=== PATIENT | female | born 1950 | race Caucasian/White ===

== ENCOUNTER 2019-06-07 03:08 | Inpatient (IN) | payer MEDICARE, OTHER ==
[2019-06-07] MEDS ORDERED: SODIUM CHLORIDE 0.9% 1,000 ML IV STA (04:06)
[2019-06-07] MEDS ORDERED: ONDANSETRON 4 MG/2 ML VIAL IVP PRN ×2 (04:26→16:29)
[2019-06-07] MEDS ORDERED: NALOXONE 0.4 MG/ML 1 ML VIAL IV PRN ×2 (04:26→16:29)
[2019-06-07] MEDS ORDERED: HYDROmorphone 1 MG/ML 1 ML SYRINGE IVP PRN (04:26)
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
[2019-06-07 04:46] LABS: Basophils % (A) 0 %; Eosinophils # (A) 0.1 k/uL (0-0.7); Eosinophils % (A) 1 %; HCT 33.3 % (34.0-46.0); HGB 10.9 gm/dL (11.4-16.0); Lymphocytes % (A) 11 %; MCH 31.9 pg (25.0-35.0); MCHC 32.8 g/dL (31.0-37.0); MCV 97.1 fL (80.0-100.0); Mean Platelet Volume 7.1; Monocytes # (A) 0.4 k/uL (0-1.0); Monocytes % (A) 5 %; Neutrophils # (A) 6.7 k/uL (1.3-7.7); Neutrophils % (A) 81 %; Platelet Count 194 k/uL (150-450); RBC 3.42 m/uL (3.80-5.40); RDW 11.9 % (11.5-15.5); WBC 8.3 k/uL (3.8-10.6)
[2019-06-07] MEDS ORDERED: HYDROmorphone 1 MG/ML 1 ML SYRINGE IVP STA (04:57)
[2019-06-07 04:59] LABS: Partial Thromboplastin Time 23.7 sec (22.0-30.0); Prothrombin Time 10.8 sec (9.0-12.0)
[2019-06-07] MEDS: HYDROmorphone 0.5 MG/0.5 ML SYRINGE IVP PRN ×5 (05:00→21:45)
--- NOTE | 2019-06-07 05:07 | XR ---
EXAM: XR Left Hip With Pelvis When Performed, 2 or 3 Views CLINICAL HISTORY: ITS.REASON XR Reason: Pain fall. TECHNIQUE: Two or three views of the left hip, with pelvis when performed. COMPARISON: No relevant prior studies available. FINDINGS: Bones/joints: Comminuted left intertrochanteric femoral fracture. Displacement of fragments and angulation at the fracture site. Query fractures of the left inferior pubic ramus and left sacral ala versus artifactual appearance due to position. No dislocation. Soft tissues: Unremarkable. IMPRESSION: 1. Comminuted left intertrochanteric femoral fracture. Displacement of fragments and angulation at the fracture site. 2. Query fractures of the left inferior pubic ramus and left sacral ala versus artifactual appearance due to position.
--- NOTE | 2019-06-07 05:09 | XR ---
EXAM: XR Chest, 1 View CLINICAL HISTORY: ITS.REASON XR Reason: hip fracture/ pain TECHNIQUE: Frontal view of the chest. COMPARISON: No relevant prior studies available. FINDINGS: Lungs: Low lung volumes. Pleural space: Unremarkable. No pneumothorax. Heart: Mildly enlarged cardiac silhouette. Mediastinum: Prominent superior mediastinum and paratracheal opacities may be due to low lung volumes and supine view. Aortic calcification. Bones/joints: Unremarkable. Vasculature: Mild central vascular congestion versus appearance due to low lung volumes. IMPRESSION: 1. Prominent superior mediastinum and paratracheal opacities may be due to low lung volumes and supine view. Aortic calcification. If there is further concern, repeat with improved inspiration or CT. 2. Mild central vascular congestion versus appearance due to low lung volumes.
[2019-06-07 05:10] LABS: ALT 33 U/L (9-52); AST 32 U/L (14-36); African American GFR (CKD) >90 (>60 ml/min/1.73 sqM); Albumin 3.4 g/dL (3.5-5.0); Alkaline Phosphatase 75 U/L (38-126); Anion Gap 8 mmol/L; Blood Urea Nitrogen 22 mg/dL (7-17); Calcium 8.5 mg/dL (8.4-10.2); Carbon Dioxide 25 mmol/L (22-30); Chloride 105 mmol/L (98-107); Glucose 102 mg/dL (74-99); Potassium 3.9 mmol/L (3.5-5.1); Sodium 138 mmol/L (137-145); Total Bilirubin 0.6 mg/dL (0.2-1.3); Total Protein 5.7 g/dL (6.3-8.2)
[2019-06-07] MEDS: SODIUM CHLORIDE 0.9% 1,000 ML IV SCH ×2 (05:23→11:34)
[2019-06-07 05:36] LABS: Appearance,Urine Clear (Clear); Bilirubin,Urine Negative (Negative); Blood,Urine Negative (Negative); Color,Urine Yellow; Glucose,Urine (UA) Negative (Negative); Ketones,Urine Negative (Negative); Leukocyte Esterase,Urine Negative (Negative); Nitrite,Urine Negative (Negative); Protein,Urine Negative (Negative); Specific Gravity,Urine 1.018 (1.001-1.035); Urobilinogen,Urine <2.0 mg/dL (<2.0)
[2019-06-07 06:44] LABS: Glucose,Whole Blood 119 mg/dL (75-99)
[2019-06-07] MEDS: FAMOTIDINE 20 MG TAB PO SCH ×2 (07:30→21:13)
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
[2019-06-07] MEDS: ATORVASTATIN 10 MG TAB PO SCH (11:30)
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
[2019-06-07] MEDS ORDERED: IV FLUID CONTINUATION 1,000 ML IV ONE (15:41)
[2019-06-07] MEDS ORDERED: diphenhydrAMINE 50 MG/ML 1 ML VIAL IVP PRN (16:29)
[2019-06-07] MEDS ORDERED: MIDAZOLAM 2 MG/2 ML VIAL ONE (17:43)
[2019-06-07] MEDS ORDERED: HYDROmorphone (PF) 1 MG/ML ONE (17:43)
[2019-06-07] MEDS ORDERED: PROPOFOL 10 MG/ML 20 ML VIAL IV ONE (17:43)
[2019-06-07] MEDS ORDERED: fentaNYL (PF) 50 MCG/ML 2 ML AMP ONE (17:43)
[2019-06-07] MEDS ORDERED: SUCCINYLCHOLINE CHLORIDE 100 MG/5 ML SYR IV ONE (17:43)
[2019-06-07] MEDS ORDERED: LIDOCAINE 1% INJ 10MG/ML (20 ML MDV) ONE (17:43)
[2019-06-07] MEDS ORDERED: MAGNESIUM HYDROXIDE 2,400 MG/10 ML CUP PO PRN (17:44)
[2019-06-07] MEDS ORDERED: HYDROmorphone 0.5 MG/0.5 ML SYRINGE IVP PRN (17:44)
[2019-06-07] MEDS ORDERED: TEMAZEPAM 15 MG CAP PO PRN (17:44)
[2019-06-07] MEDS ORDERED: HYDROcodone/APAP 5-325MG 1 EACH TAB PO PRN ×2 (17:44)
[2019-06-07] MEDS ORDERED: DIAZEPAM 5 MG TAB PO PRN (17:44)
[2019-06-07] MEDS: ceFAZolin IN SWFI 2 GM/20 ML SYRINGE IVP SCH (18:15)
[2019-06-07] MEDS ORDERED: ceFAZolin 1,000 MG in SODIUM CHLORIDE 0.9% 1,000 ML IRRIGATION ONE (18:27)
--- NOTE | 2019-06-07 18:47 | P.ANPRN ---
Procedure Note - Anesthesia - Invasive Line Left Arterial Line Time Out Performed: Yes Date of Procedure: 06/07/19 Time of Procedure: 16:25 Location of Patient Procedure: PreOp Preparation: Sterile Prep, Sterile Dressing Arterial Line Location: Radial Ultrasound Used: No Needle Guage: 20 Narrative: Left radial arterial line placed per sterile protocol utilized.
[2019-06-07] MEDS ORDERED: HYDROmorphone 1 MG/ML 1 ML SYRINGE IVP ONE (19:25)
[2019-06-07] MEDS ORDERED: diphenhydrAMINE 50 MG/ML 1 ML VIAL IVP ONE (19:46)
--- NOTE | 2019-06-07 20:23 | OP ---
OPERATIVE REPORT DATE OF PROCEDURE: 06/07/2019. SURGEON: Maykel Moy M.D. WOOD BUCKER: Terrell RAHMAN. PREOP DIAGNOSIS: Left displaced 4-part intertrochanteric hip fracture. POSTOPERATIVE DIAGNOSIS: Left displaced 4-part intertrochanteric hip fracture. OPERATION PERFORMED: Left intramedullary hip screw fixation for a left 4 part intertrochanteric hip fracture. ANESTHESIA: General endotracheal. ESTIMATED BLOOD LOSS: 50 mL. TOURNIQUET: None. DRAINS: None. COMPLICATIONS: None apparent. DISPOSITION: Postanesthesia care unit preop. INDICATIONS: Jill is a very pleasant 68-year-old female who had an accident and fell onto her left hip yesterday evening. She was brought to [facility] via ambulance with inability to ambulate and in severe left hip pain. History and physical examination as well as x-rays revealed a comminuted displaced 4 part intertrochanteric hip fracture. She was admitted to my service. She is a very active lady. She works as a realtor. She primarily lives down in [place]. Recommendation was for intramedullary hip screw fixation for her intertrochanteric hip fracture. The risks of procedure were discussed with her in detail. These risks included, but were not limited to risk of infection, nerve damage, bleeding, pain, and a risk of deep vein thrombosis which could lead to fatal pulmonary embolism. There is also risk of failure of the hardware failure, failure of the fracture to heal and periimplant fracture as well. The patient understands these risks. All of her questions were answered to her satisfaction. An appropriate informed consent was obtained. DESCRIPTION OF PROCEDURE: The patient was identified in preoperative holding area. Surgical sites marked by both the patient and myself. She was given 2 g of Ancef IV for prophylactic purposes. She was then transported to the operative suite. She was placed supine on the operative table. General anesthetic was then administered and dosed per the anesthesia without apparent complication. She was then transferred to the fracture table. She was well- padded on the fracture table. The left lower extremity was then reduced utilizing traction and rotation. Fluoroscopy was utilized to confirm reduction of the fracture prior to prepping and draping. When I was happy with the reduction, the left lower extremity was then prepped and draped in usual sterile fashion. Standard surgical pause undertaken to ensure that we were operating the correct site and that appropriate preop antibiotics were given. All staff in the room were in agreement and we proceeded. I then identified the tip of the greater trochanter utilizing fluoroscopy. Approximate 3 cm incision starting at the level of the tip of the greater trochanter, extending proximally in line with the shaft of the femur was then made with a 10 blade scalpel. Dissection was carried down sharply to the tensor fascia. The tensor fascia was then incised in line with the incision. I then utilized a curved awl to place the threaded starting pin. This was placed on the medial aspect of the greater trochanter and then advanced down the shaft of the femur. This was done under fluoroscopic guidance to ensure its proper placement. I then utilized the starting reamer. This was done, it was then reamed down to the level of the lesser trochanter. The threaded guide pin was then removed and replaced by a ball-tip guidewire. The ball- tipped guide was then placed down the shaft of the femur. Again, its placement was confirmed with fluoroscopic imaging. I then proceeded to ream the femoral canal. I started with a 9 mm reamer and increased incrementally up to a 13 mm reamer to allow for acceptance of the intramedullary hip screw. I then had the [employer] artists' booking representative open an 11 mm x 180 mm x 125 degree gamma nail. This was assembled on the back table. The gamma nail was then inserted over the ball- tipped guidewire. The ball-tipped guidewire was removed. I then proceeded with placement of the hip screw. A second small incision was made over the lateral thigh. The threaded guide pin was then advanced through the nail and into the center of the femoral head on both AP and lateral views. The tip -apex distance was appropriate. I then measured for length. The reamer was then set to 105 mm. The threaded guide pin was then over reamed under fluoroscopic imaging. I then had the artists' booking representative open a 10 mm x 105 mm cannulated partially-threaded hip screw. This was then advanced over the threaded guide pin. She had very good bone quality. Had excellent purchase in the femoral head. The screw was advanced deep into the center of the femoral head. This was confirmed on both AP and lateral views. The tip-apex distance was appropriate. I then proceeded to compress the fracture utilizing the compression function of the screw. I then proceeded to place the set screw. The set screw was then tightened fully and backed off 1/4 turn to allow for compression of the fracture site. I then proceeded to place the distal interlocking screw. A third small stab incision was made on the lateral thigh. A 5 mm x 37.5 mm distal static locking screw was then placed utilizing standard technique. Again this was placed under fluoroscopic imaging to confirm that it was indeed through the nail and that was of appropriate length. At this point time, no further work was deemed necessary. Final AP and lateral views of the construct were then taken. The fracture was reduced. The nail was within the femoral canal. The distal static locking screw was of appropriate length and through the nail. The hip screw was of appropriate length and placed deep into the center of the femoral head. The tip-apex distance was appropriate. At this point time no further work was deemed necessary. The wounds were thoroughly irrigated with sterile saline solution with antibiotic added. The tensor fascia was closed with 0-Vicryl interrupted suture. The subcutaneous tissue closed with 2-0 Vicryl interrupted suture and the skin was closed with stainless steel uriel. Sterile compressive dressing was then applied. All sponge and needle counts were deemed correct prior to closure. The patient tolerated the procedure without apparent complication. She was transferred to recovery room in stable condition. MMODL / IJN: [id number] /
[2019-06-07 20:46] LABS: Basophils % (A) 0 %; Eosinophils # (A) 0.1 k/uL (0-0.7); Eosinophils % (A) 1 %; HCT 31.6 % (34.0-46.0); HGB 10.2 gm/dL (11.4-16.0); Lymphocytes # (A) 0.9 k/uL (1.0-4.8); Lymphocytes % (A) 7 %; MCH 32.3 pg (25.0-35.0); MCHC 32.3 g/dL (31.0-37.0); MCV 100.2 fL (80.0-100.0); Mean Platelet Volume 7.2; Monocytes # (A) 0.6 k/uL (0-1.0); Monocytes % (A) 5 %; Neutrophils # (A) 10.3 k/uL (1.3-7.7); Neutrophils % (A) 86 %; Platelet Count 190 k/uL (150-450); RBC 3.15 m/uL (3.80-5.40); WBC 11.9 k/uL (3.8-10.6)
[2019-06-07] MEDS: NALBUPHINE 10 MG/ML (1 ML AMP) IV PRN (21:06)
[2019-06-07] MEDS: SENNOSIDES-DOCUSATE SODIUM 1 EACH TAB PO SCH (21:13)
[2019-06-07] MEDS: LACTATED RINGERS 1,000 ML IV SCH (23:45)
[2019-06-07] MEDS: ZOLPIDEM 10 MG TAB PO SCH (23:46)
[2019-06-08] MEDS: NALBUPHINE 10 MG/ML (1 ML AMP) IV PRN (02:03)
[2019-06-08] MEDS: HYDROmorphone 0.5 MG/0.5 ML SYRINGE IVP PRN ×6 (04:58→21:43)
[2019-06-08] MEDS: LEVOTHYROXINE 125 MCG TAB PO SCH (04:58)
[2019-06-08] MEDS: SODIUM CHLORIDE 0.9% 1,000 ML IV SCH ×2 (05:11→15:24)
[2019-06-08] MEDS: LACTATED RINGERS 1,000 ML IV SCH ×3 (05:43→22:50)
--- NOTE | 2019-06-08 07:15 | XR ---
EXAMINATION TYPE: XR Hip Limited LT, FL guidance operating room DATE OF EXAM: 06/07/2019 CLINICAL HISTORY: Left hip fracture. Fluoroscopically documentation. TECHNIQUE: Fluoroscopy. COMPARISON: None. FINDINGS: Fluoroscopic guidance was provided during procedure performed by Dr. Moy. A total of 1 minute and 32 seconds of fluoroscopic time was utilized during the procedure and 2 spot images was a cquired during a left hip open reduction internal fixation. IMPRESSION: As Above.
[2019-06-08] MEDS: CYANOCOBALAMIN 500 MCG TAB PO SCH (08:26)
[2019-06-08] MEDS: ceFAZolin IN SWFI 2 GM/20 ML SYRINGE IVP SCH (08:26)
[2019-06-08] MEDS: FAMOTIDINE 20 MG TAB PO SCH ×2 (08:26→21:42)
[2019-06-08] MEDS: CHOLECALCIFEROL 1,000 UNIT TAB PO SCH (08:26)
[2019-06-08] MEDS: HYDROCHLOROTHIAZIDE 25 MG TAB PO SCH (08:27)
[2019-06-08] MEDS: VIT A,C & E-LUTEIN-MINERALS 1 EACH TAB PO SCH (08:27)
[2019-06-08] MEDS: LISINOPRIL 20 MG TAB PO SCH (08:27)
[2019-06-08] MEDS: ATORVASTATIN 10 MG TAB PO SCH (08:27)
[2019-06-08] MEDS ORDERED: NON-FORMULARY DRUG (Ubidecarenone [Co Q-10] 100 MG) PO SCH (09:00)
--- NOTE | 2019-06-08 11:06 | P.PN ---
Subjective Progress Note Date: 06/08/19 Principal diagnosis: Left hip fracture Patient is seen at bedside this morning. She is postop day #1 from left hip IM hip screw for IT fracture. She has pain at the surgical site as expected but denies any new complaints. She denies numbness, tingling or calf pain. Review of systems is negative for fever, chills, chest pain, shortness of breath or other Objective - Vital Signs Vital signs: Vital Signs Temp 99.4 F 06/08/19 07:32 Pulse 82 06/08/19 07:32 Resp 16 06/08/19 07:32 BP 100/57 06/08/19 07:32 Pulse Ox 95 06/08/19 07:32 Intake & Output 06/07/19 06/08/19 06/08/19 18:59 06:59 18:59 Intake Total 701 210 260 Output Total 275 475 Balance 426 -265 260 Intake: IV 701 200 Oral 10 260 Output: Urine 275 425 Estimated Blood Loss 50 Other: Voiding Method Indwelling Catheter Indwelling Catheter # Voids 1 - Exam Inspection reveals a benign surgical wound. There is no active bleeding or drainage. Neurovascular status is intact throughout the lower extremity with motor and sensation fully intact. Calf is soft and nontender. 2+ dorsalis pedis pulse and less than 2 second cap refill is present. - Constitutional General appearance: Present: no acute distress - Labs CBC & Chem 7: 06/07/19 20:34 06/07/19 04:34 Labs: Abnormal Lab Results - Last 24 Hours (Table) 06/07/19 Range/Units 20:34 WBC 11.9 H (3.8-10.6) k/uL RBC 3.15 L (3.80-5.40) m/uL Hgb 10.2 L (11.4-16.0) gm/dL Hct 31.6 L (34.0-46.0) % MCV 100.2 H (80.0-100.0) fL Neutrophils # 10.3 H (1.3-7.7) k/uL Lymphocytes # 0.9 L (1.0-4.8) k/uL Assessment and Plan (1) Hip fracture, left Narrative/Plan: She will continue with routine postop orthopedic protocol including pain management, wound care, PT, DVT prophylaxis and medical management. Expect that she will transfer to home in next few days Current Visit: Yes Status: Acute Priority: Medium Code(s): S72.002A - FRACTURE OF UNSP PART OF NECK OF LEFT FEMUR, INIT SNOMED Code(s): 202013676 Time with Patient: Less than 30
[2019-06-08] MEDS: MULTIVITAMINS, THERA 1 EACH TAB PO SCH (11:31)
--- NOTE | 2019-06-08 11:46 | P.PN ---
Subjective Progress Note Date: 06/08/19 Patient is doing well. Patient had surgery yesterday and tolerated very well. No complaints of any chest pain or shortness of breath. Blood pressure stable. Complaints of pain in the surgical site. No arrhythmias detected. Patient will continue current medical therapy. Patient has some swelling of the left knee and getting some x-rays of the knee joint. Objective - Vital Signs Vital signs: Vital Signs Temp 99.4 F 06/08/19 07:32 Pulse 76 06/08/19 08:05 Resp 16 06/08/19 08:05 BP 100/57 06/08/19 07:32 Pulse Ox 95 06/08/19 07:32 Intake & Output 06/07/19 06/08/19 06/08/19 18:59 06:59 18:59 Intake Total 701 210 260 Output Total 275 475 Balance 426 -265 260 Intake: IV 701 200 Oral 10 260 Output: Urine 275 425 Estimated Blood Loss 50 Other: Voiding Method Indwelling Catheter Indwelling Catheter Indwelling Catheter # Voids 1 1 - Exam GENERAL EXAM: Patient is alert and oriented and doesn't appear to be in any a cute distress HEENT: Normocephalic. Normal reaction of pupils, equal size, normal range of extraocular motion. No erythema or exudates in the throat. NECK: No masses, no nuchal rigidity. CHEST: No chest wall deformity. LUNGS: Equal air entry with no crackles or wheeze. HEART: S1 and S2 normal with no audible mumurs or gallops. Regular rhythm, femorals equal on both sides.. ABDOMEN: No hepatosplenomegaly, normal bowel sounds, no guarding or rigidity. SKIN: No rashes CENTRAL NERVOUS SYSTEM: No focal deficits. EXTREMITIES: [No cyanosis, clubbing or edema.] - Labs CBC & Chem 7: 06/07/19 20:34 06/07/19 04:34 Labs: Abnormal Lab Results - Last 24 Hours (Table) 06/07/19 Range/Units 20:34 WBC 11.9 H (3.8-10.6) k/uL RBC 3.15 L (3.80-5.40) m/uL Hgb 10.2 L (11.4-16.0) gm/dL Hct 31.6 L (34.0-46.0) % MCV 100.2 H (80.0-100.0) fL Neutrophils # 10.3 H (1.3-7.7) k/uL Lymphocytes # 0.9 L (1.0-4.8) k/uL Assessment and Plan (1) Aortic stenosis Current Visit: Yes Status: Acute Code(s): I35.0 - NONRHEUMATIC AORTIC (VALVE) STENOSIS SNOMED Code(s): 30497041 (2) Preoperative clearance Current Visit: Yes Status: Acute Code(s): Z01.818 - ENCOUNTER FOR OTHER PREP ROCEDURAL EXAMINATION SNOMED Code(s): 13604912 (3) Essential hypertension Current Visit: Yes Status: Acute Code(s): I10 - ESSENTIAL (PRIMARY) HYPERTENSION SNOMED Code(s): 48210482 (4) Hypercholesterolemia Current Visit: Yes Status: Acute Code(s): E78.00 - PURE HYPERCHOLESTEROLEMIA, UNSPECIFIED SNOMED Code(s): 42685691 (5) Hip fracture, left Current Visit: Yes Status: Acute Priority: Medium Code(s): S72.002A - FRACTURE OF UNSP PART OF NECK OF LEFT FEMUR, INIT SNOMED Code(s): 199644330 Plan: Patient is hemodynamically stable. We'll continue with the KALEIGH inhibitor and hydrochlorothiazide pooper pressure control. She is also on Lipitor. We'll follow
--- NOTE | 2019-06-08 13:23 | XR ---
EXAMINATION TYPE: XR knee 4V LT DATE OF EXAM: 06/08/2019 COMPARISON: None HISTORY: Left knee pain and swelling TECHNIQUE: 4 view left knee FINDINGS: Partial joint replacement is through the medial compartment joint space. No acute fractures are evident. Old fracture of the proximal tibia is evident. A small to moderate joint effusion appea rs to be present. IMPRESSION: 1. Surgical changes left knee. 2. Small to moderate joint effusion.
--- NOTE | 2019-06-08 20:43 | P.PN ---
Subjective Progress Note Date: 06/08/19 POD #1 from left hip IM hip screw for IT fracture, sitting up in chair. recently received Dilaudid, reports left knee pain and swelling. COURTNEY overnight Objective - Vital Signs Vital signs: Vital Signs Temp 98.8 F 06/08/19 14:06 Pulse 89 06/08/19 14:06 Resp 16 06/08/19 17:00 BP 94/55 06/08/19 14:06 Pulse Ox 95 06/08/19 17:00 Intake & Output 06/08/19 06/08/19 06/09/19 06:59 18:59 06:59 Intake Total 210 1695 Output Total 475 Balance -265 1695 Intake: IV 200 Intake, IV Titration 800 Amount Lactated Ringers 1,000 ml 800 @ 100 mls/hr IV .Q10H [facility] Rx#:[id number] Oral 10 895 Output: Urine 425 Estimated Blood Loss 50 Other: Voiding Method Indwelling Catheter Indwelling Catheter # Voids 800 - Exam General: non toxic, no distress, appears at stated age, normal weight Derm: no unusual rashes/lesions no unusual ecchymoses, warm, dry Head: atraumatic, normocephalic, symmetric Eyes: EOMI, no lid lag, anicteric sclera, pupils equal round reactive to light ENT: Nose and ears atraumatic, no thrush, no pharyngeal erythema Neck: No thyromegaly, no cervical lymphadenopathy, trachea midline, supple Mouth: no lip lesion, mucus membranes moist Cardiovascular: S1S2 reg, 4/5 systolic ejection murmur, positive posterior tibial pulse bilateral, no edema, capillary refill less than 2 seconds Lungs: CTA bilateral, no rhonchi, no rales , no accessory muscle use Abdominal: soft, nontender to palpation, no guarding, no appreciable organomegaly, normal bowel sounds Ext: Left leg externally rotated, no gross muscle atrophy, muscle strength 5 out of 5 in upper extremities grossly, no contractures, Neuro: CN II-XI grossly intact, light touch intact all 4 extremities, finger to nose within normal limits, Psych: Alert, oriented, appropriate affect - Labs CBC & Chem 7: 06/07/19 20:34 06/07/19 04:34 Labs: Abnormal Lab Results - Last 24 Hours (Table) 06/07/19 Range/Units 20:34 WBC 11.9 H (3.8-10.6) k/uL RBC 3.15 L (3.80-5.40) m/uL Hgb 10.2 L (11.4-16.0) gm/dL Hct 31.6 L (34.0-46.0) % MCV 100.2 H (80.0-100.0) fL Neutrophils # 10.3 H (1.3-7.7) k/uL Lymphocytes # 0.9 L (1.0-4.8) k/uL Assessment and Plan Assessment: Patient is a 68 yo CF here after a fall with left IT hip fracture Severe aortic stenosis - careful fluid/ blood pressure management in the perioperative period. - cardio consult for assistance with fluid management, patient is medically optimized for surgery and can be seen by cardio post-operatively. Left IT hip fracture with pain - pain mangement - Plan is for OR today - RCRI risk score is 0. Medically optimized for surgery at this time, no additional testing necessary. Careful perioperative fluid management due to severe aortic stenosis. Last echo is available on the chart. Continue with - ortho management Left knee pain/swelling - likely traumatic secondary to fall - check left knee Xray and start ice packs prn Anemia - baseline unknown - check iron stores - repeat CBC in AM HTN, controlled - follow BP - Continue Remipril HLD - statin Insomnia - lalito Thank you for allowing us to participate in the care of this patient. Do not hesitate to contact us with questions. Someone can be reached from the [facility] hospitalist group at all hours of the day at [phone]
[2019-06-08] MEDS: SENNOSIDES-DOCUSATE SODIUM 1 EACH TAB PO SCH (21:42)
[2019-06-08] MEDS: ZOLPIDEM 10 MG TAB PO SCH (22:13)
[2019-06-09] MEDS: ACETAMINOPHEN TAB 325 MG TAB PO PRN (02:33)
[2019-06-09] MEDS: SODIUM CHLORIDE 0.9% 1,000 ML IV SCH ×2 (02:34→19:50)
[2019-06-09] MEDS: HYDROmorphone 0.5 MG/0.5 ML SYRINGE IVP PRN (04:39)
[2019-06-09] MEDS: LEVOTHYROXINE 125 MCG TAB PO SCH (05:36)
[2019-06-09] MEDS: VIT A,C & E-LUTEIN-MINERALS 1 EACH TAB PO SCH (08:34)
[2019-06-09] MEDS: CYANOCOBALAMIN 500 MCG TAB PO SCH (08:35)
[2019-06-09] MEDS: LISINOPRIL 20 MG TAB PO SCH (08:35)
[2019-06-09] MEDS: ATORVASTATIN 10 MG TAB PO SCH (08:35)
[2019-06-09] MEDS: HYDROCHLOROTHIAZIDE 25 MG TAB PO SCH (08:35)
[2019-06-09] MEDS: MULTIVITAMINS, THERA 1 EACH TAB PO SCH (08:35)
[2019-06-09] MEDS: CHOLECALCIFEROL 1,000 UNIT TAB PO SCH (08:35)
[2019-06-09] MEDS: FAMOTIDINE 20 MG TAB PO SCH ×2 (08:35→20:30)
[2019-06-09] MEDS: LACTATED RINGERS 1,000 ML IV SCH ×2 (11:06→19:51)
--- NOTE | 2019-06-09 11:07 | P.PN ---
Subjective Progress Note Date: 06/09/19 POD #2 from left hip IM hip screw for IT fracture, sitting up in chair. recently received Dilaudid, patient apparently has not been very ambulatory secondary to pain. Almost fell earlier today, patient amenable to going to rehab. Left knee x-ray showing effusion likely traumatic from fall. The Cabrera catheter still and will defer to orthopedics of when they want it removed. No acute events overnight Objective - Vital Signs Vital signs: Vital Signs Temp 98.2 F 06/09/19 07:45 Pulse 88 06/09/19 07:45 Resp 16 06/09/19 07:45 BP 100/61 06/09/19 07:45 Pulse Ox 93 L 06/09/19 07:45 Intake & Output 06/08/19 06/09/19 06/09/19 18:59 06:59 18:59 Intake Total 1695 240 240 Output Total 1700 Balance 1695 -1460 240 Intake: Intake, IV Titration 800 Amount Lactated Ringers 1,000 ml 800 @ 100 mls/hr IV .Q10H [facility] Rx#:[id number] Oral 895 240 240 Output: Urine 1700 Other: Voiding Method Indwelling Catheter Indwelling Catheter Indwelling Catheter # Voids 800 - Exam General: non toxic, no distress, appears at stated age, normal weight Derm: no unusual rashes/lesions no unusual ecchymoses, warm, dry Head: atraumatic, normocephalic, symmetric Eyes: EOMI, no lid lag, anicteric sclera, pupils equal round reactive to light ENT: Nose and ears atraumatic, no thrush, no pharyngeal erythema Neck: No thyromegaly, no cervical lymphadenopathy, trachea midline, supple Mouth: no lip lesion, mucus membranes moist Cardiovascular: S1S2 reg, 4/5 systolic ejection murmur, positive posterior tibial pulse bilateral, no edema, capillary refill less than 2 seconds Lungs: CTA bilateral, no rhonchi, no rales , no accessory muscle use Abdominal: soft, nontender to palpation, no guarding, no appreciable organ omegaly, normal bowel sounds Ext: Left leg externally rotated, no gross muscle atrophy, muscle strength 5 out of 5 in upper extremities grossly, no contractures, Neuro: CN II-XI grossly intact, light touch intact all 4 extremities, finger to nose within normal limits, Psych: Alert, oriented, appropriate affect - Labs CBC & Chem 7: 06/07/19 20:34 06/07/19 04:34 Assessment and Plan Assessment: Patient is a 68 yo CF here after a fall with left IT hip fracture Severe aortic stenosis - careful fluid/ blood pressure management in the perioperative period. - cardio consult for assistance with fluid management, patient is medically optimized for surgery and can be seen by cardio post-operatively. POD #2 from left hip IM hip screw for IT fracture - pain mangement - RCRI risk score is 0. Medically optimized for surgery at this time, no additional testing necessary. Careful perioperative fluid management due to severe aortic stenosis. Last echo is available on the chart. Continue with - ortho management Left knee effusion - likely traumatic secondary to fall -Continue ice packs prn Anemia - baseline unknown - check iron stores - repeat CBC in AM HTN, controlled - follow BP - Continue Remipril HLD - statin Insomnia - lalito Thank you for allowing us to participate in the care of this patient. Do not hesitate to contact us with questions. Someone can be reached from the [facility] hospitalist group at all hours of the day at [phone]
[2019-06-09] MEDS: oxyCODONE ER 10 MG TAB.ER.12H PO SCH ×2 (12:22→20:30)
--- NOTE | 2019-06-09 12:34 | P.PN ---
Subjective Progress Note Date: 06/09/19 Patient is doing well. Patient had surgery yesterday and tolerated very well. No complaints of any chest pain or shortness of breath. Blood pressure stable. Complaints of pain in the surgical site. No arrhythmias detected. Patient will continue current medical therapy. Patient has some swelling of the left knee and getting some x-rays of the knee joint. 06/08/2019: Patient is clinically stable. Complaints of pain in the surgical site. Ambulating to the bathroom. No complaints of any chest pain or shortness of breath. No complaints of palpitations. No arrhythmias. Patient is eating and drinking well. We can give him IV. Increase activity as tolerated. Patient still has a Cabrera catheter. Possible transfer to rehab center tomorrow Objective - Vital Signs Vital signs: Vital Signs Temp 98.2 F 06/09/19 07:45 Pulse 88 06/09/19 07:45 Resp 16 06/09/19 07:45 BP 100/61 06/09/19 07:45 Pulse Ox 93 L 06/09/19 07:45 Intake & Output 06/08/19 06/09/19 06/09/19 18:59 06:59 18:59 Intake Total 1695 240 240 Output Total 1700 Balance 1695 -1460 240 Intake: Intake, IV Titration 800 Amount Lactated Ringers 1,000 ml 800 @ 100 mls/hr IV .Q10H [facility] Rx#:[id number] Oral 895 240 240 Output: Urine 1700 Other: Voiding Method Indwelling Catheter Indwelling Catheter Indwelling Catheter # Voids 800 - Exam GENERAL EXAM: Patient is alert and oriented and doesn't appear to be in any acute distress HEENT: Normocephalic. Normal reaction of pupils, equal size, normal range of extraocular motion. No erythema or exudates in the throat. NECK: No masses, no nuchal rigidity. CHEST: No chest wall deformity. LUNGS: Equal air entry with no crackles or wheeze. HEART: S1 and S2 normal with no audible mumurs or gallops. Regular rhythm, femorals equal on both sides.. ABDOMEN: No hepatosplenomegaly, normal bowel sounds, no guarding or rigidity. SKIN: No rashes CENTRAL NERVOUS SYSTEM: No focal deficits. EXTREMITIES: [No cyanosis, clubbing or edema.] - Labs CBC & Chem 7: 06/07/19 20:34 06/07/19 04:34 Assessment and Plan (1) Aortic stenosis Current Visit: Yes Status: Acute Code(s): I35.0 - NONRHEUMATIC AORTIC (VALVE) STENOSIS SNOMED Code(s): 48622107 (2) Preoperative clearance Current Visit: Yes Status: Acute Code(s): Z01.818 - ENCOUNTER FOR OTHER PREPROCEDURAL EXAMINATION SNOMED Code(s): 46853459 (3) Essential hypertension Current Visit: Yes Status: Acute Code(s): I10 - ESSENTIAL (PRIMARY) HYPE RTENSION SNOMED Code(s): 92997039 (4) Hypercholesterolemia Current Visit: Yes Status: Acute Code(s): E78.00 - PURE HYPERCHOLESTEROLEMIA, UNSPECIFIED SNOMED Code(s): 28021162 (5) Hip fracture, left Current Visit: Yes Status: Acute Priority: Medium Code(s): S72.002A - FRACTURE OF UNSP PART OF NECK OF LEFT FEMUR, INIT SNOMED Code(s): 319072639 Plan: Cardiac-cesar stable. Patient is eating and drinking well. We'll make the IV KVO. Increase activity. Possible transfer to rehab center tomorrow.
[2019-06-09 15:10] LABS: Basophils % (A) 0 %; Eosinophils # (A) 0.1 k/uL (0-0.7); Eosinophils % (A) 1 %; HCT 22.3 % (34.0-46.0); Lymphocytes # (A) 0.5 k/uL (1.0-4.8); Lymphocytes % (A) 7 %; MCH 31.8 pg (25.0-35.0); MCHC 32.1 g/dL (31.0-37.0); Mean Platelet Volume 6.9; Monocytes # (A) 0.4 k/uL (0-1.0); Monocytes % (A) 6 %; Neutrophils # (A) 6.3 k/uL (1.3-7.7); Neutrophils % (A) 85 %; Platelet Count 123 k/uL (150-450); RBC 2.25 m/uL (3.80-5.40); RDW 12.1 % (11.5-15.5); WBC 7.4 k/uL (3.8-10.6)
[2019-06-09 15:17] LABS: HGB 7.1 gm/dL (11.4-16.0)
--- NOTE | 2019-06-09 15:59 | P.PN ---
Subjective Progress Note Date: 06/09/19 Principal diagnosis: Left hip fracture Patient is seen at bedside this morning. She is postop day #2 from left hip IM hip screw for IT fracture. She has pain at the surgical site as expected but denies any new complaints. She denies numbness, tingling or calf pain. Review of systems is negative for fever, chills, chest pain, shortness of breath or other Objective - Vital Signs Vital signs: Vital Signs Temp 97.4 F L 06/09/19 14:37 Pulse 84 06/09/19 14:37 Resp 16 06/09/19 14:37 BP 91/54 06/09/19 14:37 Pulse Ox 96 06/09/19 14:37 Intake & Output 06/08/19 06/09/19 06/09/19 18:59 06:59 18:59 Intake Total 1695 240 480 Output Total 1700 Balance 1695 -1460 480 Intake: Intake, IV Titration 800 Amount Lactated Ringers 1,000 ml 800 @ 100 mls/hr IV .Q10H [facility] Rx#:[id number] Oral 895 240 480 Output: Urine 1700 Other: Voiding Method Indwelling Catheter Indwelling Catheter Indwelling Catheter # Voids 800 3 - Exam Inspection reveals a benign surgical wound. There is no active bleeding or drainage. Neurovascular status is intact throughout the lower extremity with motor and sensation fully intact. Calf is soft and nontender. 2+ dorsalis pedis pulse and less than 2 second cap refill is present. - Constitutional General appearance: Present: no acute distress - Labs CBC & Chem 7: 06/09/19 14:57 06/07/19 04:34 Labs: Abnormal Lab Results - Last 24 Hours (Table) 06/09/19 Range/Units 14:57 RBC 2.25 L (3.80-5.40) m/uL Hgb 7.1 L D (11.4-16.0) gm/dL Hct 22.3 L (34.0-46.0) % Plt Count 123 L (150-450) k/uL Lymphocytes # 0.5 L (1.0-4.8) k/uL Assessment and Plan (1) Hip fracture, left Narrative/Plan: She will continue with routine postop orthopedic protocol including pain management, wound care, PT, DVT prophylaxis and medical management. Expect that she will transfer to home in next few days Current Visit: Yes Status: Acute Priority: Medium Code(s): S72.002A - FRACTURE OF UNSP PART OF NECK OF LEFT FEMUR, INIT SNOMED Code(s): 343940643 Time with Patient: Less than 30
[2019-06-09] MEDS: ZOLPIDEM 10 MG TAB PO SCH (20:30)
[2019-06-09] MEDS: SENNOSIDES-DOCUSATE SODIUM 1 EACH TAB PO SCH (20:31)
[2019-06-09] MEDS ORDERED: oxyCODONE ER 10 MG TAB.ER.12H PO SCH (21:00)
[2019-06-10] MEDS: LACTATED RINGERS 1,000 ML IV SCH ×2 (00:36→19:48)
[2019-06-10] MEDS: LEVOTHYROXINE 125 MCG TAB PO SCH (04:48)
[2019-06-10 06:48] LABS: MCH 33.4 pg (25.0-35.0); MCHC 34.7 g/dL (31.0-37.0); MCV 96.3 fL (80.0-100.0); Mean Platelet Volume 8.1; Platelet Count 142 k/uL (150-450); RBC 2.02 m/uL (3.80-5.40); RDW 12.7 % (11.5-15.5); WBC 8.5 k/uL (3.8-10.6)
[2019-06-10 06:51] LABS: HCT 19.5 % (34.0-46.0); HGB 6.8 gm/dL (11.4-16.0)
[2019-06-10] MEDS: SODIUM CHLORIDE 0.9% 1,000 ML IV SCH (07:53)
[2019-06-10] MEDS: CHOLECALCIFEROL 1,000 UNIT TAB PO SCH (07:54)
[2019-06-10] MEDS: CYANOCOBALAMIN 500 MCG TAB PO SCH (07:54)
[2019-06-10] MEDS: VIT A,C & E-LUTEIN-MINERALS 1 EACH TAB PO SCH (07:54)
[2019-06-10] MEDS: ATORVASTATIN 10 MG TAB PO SCH (07:54)
[2019-06-10] MEDS: HYDROCHLOROTHIAZIDE 25 MG TAB PO SCH (07:54)
[2019-06-10] MEDS: FAMOTIDINE 20 MG TAB PO SCH ×2 (07:55→21:29)
[2019-06-10] MEDS: oxyCODONE ER 10 MG TAB.ER.12H PO SCH ×3 (07:55→21:29)
[2019-06-10] MEDS: LISINOPRIL 20 MG TAB PO SCH (07:55)
--- NOTE | 2019-06-10 11:20 | P.PN ---
Subjective Progress Note Date: 06/10/19 Patient seen and examined at bedside, extremely somnolent but arousable. Reports that she feels drowsy apparently had oxycodone and Ambien last night. Reports her pain is well-controlled when she doesn't move, the hemoglobin gradually dropping 10.2 to 6.8 postop. Patient increasingly fatigued and tired. Has a lot of bruising around the left hip area Objective - Vital Signs Vital signs: Vital Signs Temp 97.5 F L 06/10/19 08:39 Pulse 88 06/10/19 08:39 Resp 16 06/10/19 08:39 BP 114/63 06/10/19 08:39 Pulse Ox 98 06/10/19 08:39 Intake & Output 06/09/19 06/10/19 06/10/19 18:59 06:59 18:59 Intake Total 480 100 Output Total 2450 Balance 480 -2350 Intake: Oral 480 100 Output: Urine 2450 Other: Voiding Method Indwelling Catheter Indwelling Catheter Indwelling Catheter # Voids 3 - Exam General: non toxic, no distress, appears at stated age, normal weight Derm: no unusual rashes/lesions no unusual ecchymoses, warm, dry Head: atraumatic, normocephalic, symmetric Eyes: EOMI, no lid lag, anicteric sclera, pupils equal round reactive to light ENT: Nose and ears atraumatic, no thrush, no pharyngeal erythema Neck: No thyromegaly, no cervical lymphadenopathy, trachea midline, supple Mouth: no lip lesion, mucus membranes moist Cardiovascular: S1S2 reg, 4/5 systolic ejection murmur, positive posterior tibial pulse bilateral, no edema, capillary refill less than 2 seconds Lungs: CTA bilateral, no rhonchi, no rales , no accessory muscle use Abdominal: soft, nontender to palpation, no guarding, no appreciable organome mo, normal bowel sounds Ext: No active bleeding or drainage appears to be neurovascularly intact, does have surrounding left hip hematoma Neuro: CN II-XI grossly intact, light touch intact all 4 extremities, finger to nose within normal limits, Psych: Alert, oriented, appropriate affect - Labs CBC & Chem 7: 06/10/19 05:48 06/07/19 04:34 Labs: Abnormal Lab Results - Last 24 Hours (Table) 06/09/19 06/10/1906/10/19 Range/Units 14:57 05:48 08:41 RBC 2.25 L 2.02 L (3.80-5.40) m/uL Hgb 7.1 L D 6.8 L* (11.4-16.0) gm/dL Hct 22.3 L 19.5 L* (34.0-46.0) % Plt Count 123 L 142 L (150-450) k/uL Lymphocytes # 0.5 L (1.0-4.8) k/uL Crossmatch See Detail Assessment and Plan Assessment: Patient is a 68 yo CF here after a fall with left IT hip fracture Severe aortic stenosis - careful fluid/ blood pressure management in the perioperative period. - cardio consult for assistance with fluid management, patient is medically optimized for surgery and can be seen by cardio post-operatively. POD #3 from left hip IM hip screw for IT fracture - pain mangement - RCRI risk score is 0. Medically optimized for surgery at this time, no additional testing necessary. Careful perioperative fluid management due to severe aortic stenosis. Last echo is available on the chart. Continue with - ortho management Postoperative anemia -Secondary to blood loss anemia hemoglobin down to 7.1 -Type and cross and transfuse 1 unit of packed RBCs to recheck CBC in the morning * will check iron studies Left knee effusion - likely traumatic secondary to fall -Continue ice packs prn HTN, controlled - follow BP - Continue Remipril HLD - statin Insomnia -We will decrease dose of Ambien from 10 to 5 mg PO qhs Disposition * Anticipated discharge on Wednesday to rehab Thank you for allowing us to participate in the care of this patient. Do not hesitate to contact us with questions. Someone can be reached from the [facility] hospitalist group at all hours of the day at [phone]
[2019-06-10] MEDS: ASPIRIN 325 MG TAB PO SCH ×2 (12:34→21:29)
[2019-06-10] MEDS: MULTIVITAMINS, THERA 1 EACH TAB PO SCH (12:34)
[2019-06-10] MEDS: ACETAMINOPHEN TAB 325 MG TAB PO PRN ×2 (13:13→20:02)
--- NOTE | 2019-06-10 13:21 | P.PN ---
Progress Note - Text Progress Note Date: 06/10/19 Patient is a very pleasant 68-year-old female who is seen and examined at the bedside for follow-up evaluation for her left hip. She is status post left hip intramedullary nail fixation for left intertrochanteric hip fracture. Postoperatively she feels her pain has been controlled at her left hip. She admits this morning she is having some increased confusion after receiving her Ambien and Percocet last night. She states she does not quite feel herself. Nursing is currently holding her Percocet. Laboratory testing from this morning showed evidence of anemia with a hemoglobin of 6.8. Medicine is planning to give 1 unit of blood. Patient is currently lying flat in bed per medicine's recommendations. Cabrera catheter continues to be intact. Patient was initially planing to possibly discharge home but she states she would not be able to do so and is planning for discharge to a rehabilitation facility. Given her other current medical diagnoses, we discussed she will most likely plan to be discharged to rehab this coming 06/12/2019. Physical Exam Intramedullary Nail Fixation for Intertrochanteric Fracture: Status post surgical day number 3 Patient is examined lying in bed Patient is awake and is able to answer questions appropriately but does doze off quickly and states she feels somewhat confused Vital signs stable Good chest excursion with deep inspiration and expiration; patient currently on O2 nasal cannula Abdomen soft nontender No signs or symptoms of DVT; no calf pain Lower extremity cuffs in place bilaterally Dressing of the hip is clean, dry, and intact; no erythema, purulence, or signs of infection No pain with palpation over the surgical sites Full range of motion of ankles bilaterally Dorsiflexion, plantarflexion, and extensor hallucis longus positive sustained bilaterally Neurovascularly intact bilateral lower extremities Capillary refill less than 2 seconds bilateral lower extremities Assessment: Status post left intramedullary nail fixation for left intertrochanteric hip fracture Status post fall Anemia Increased confusion after receiving Percocet and Ambien History of severe aortic stenosis History of hypertension History of insomnia Plan: 1. Patient to remain toe-touch weightbearing on the left lower extremity; patient may work with physical therapy to increase mobility and ambulation 2. Keep dressing over the left hip clean, dry, and intact 3. Discontinue Cabrera catheter when patient is able to increase mobility and ambulation 4. Continue pain control with oral Brock, OxyContin, and/or IV Dilaudid as needed for pain control but narcotics are currently being held until patient's confusion improves 5. Continue with anticoagulation therapy with aspirin 325 mg twice a day 6. Medicine to continue following the patient for their other medical diagnosis including anemia 7. We'll continue to follow the patient closely; depending on the patient's progress, we may plan for discharge as early as 06/12/2019, to a rehabilitation facility 8. Patient can follow-up with Dr. Maykel Moy at [facility] in 10 days following discharge
--- NOTE | 2019-06-10 14:06 | P.PN ---
Subjective Progress Note Date: 06/10/19 Patient is doing well. Patient had surgery yesterday and tolerated very well. No complaints of any chest pain or shortness of breath. Blood pressure stable. Complaints of pain in the surgical site. No arrhythmias detected. Patient will continue current medical therapy. Patient has some swelling of the left knee and getting some x-rays of the knee joint. 06/08/2019: Patient is clinically stable. Complaints of pain in the surgical site. Ambulating to the bathroom. No complaints of any chest pain or shortness of breath. No complaints of palpitations. No arrhythmias. Patient is eating and drinking well. We can give him IV. Increase activity as tolerated. Patient still has a Cabrera catheter. Possible transfer to rehab center tomorrow 06/09: Apparently, patient had mental status changes this morning most likely secondary to Ambien and Percocet and medication adjustments have been made by medicine. Patient is currently tolerating lisinopril well with blood pressure 114/63, heart rate 88, patient has been resumed on aspirin and atorvastatin. Cabrera catheter remains in place as patient states that she is unable to ambulate and get herself to the bathroom or commode chair. She denies having any chest pain or shortness of breath, no palpitations, no arrhythmias. She states she is not eating very much today and her is bringing her food from outside the hospital. She was scheduled for discharge to rehab today which is being delayed until Wednesday. Hemoglobin this morning was 6.8 and she is scheduled for 1 unit packed RBCs. Gen: This is a 68-year-old female. She is awake alert and appears to be in no acute distress. HEENT: Head is atraumatic, normocephalic. Pupils equal, round. Sclerae is anicteric. NECK: Supple. No JVD. No lymphadenopathy. No thyromegaly. LUNGS: Clear to auscultation. No wheezes or rhonchi. No intercostal retractions. HEART: Regular rate and rhythm. No murmur. ABDOMEN: Soft. Bowel sounds are present. No masses. No tenderness. EXTREMITIES: No pedal edema. No calf tenderness. Dorsalis pedis +2 bilaterally. NEUROLOGICAL: Patient is awake, alert and oriented x3. Cranial nerves 2 through 12 are grossly intact. Assessment: Aortic stenosis, stable Hypertension, stable Hyperlipidemia Left hip fracture status post IM screw Plan: Continue Lipitor 10 mg daily, lisinopril 40 mg daily, Aspirin 325 mg twice daily for DVT prophylaxis. Nurse practitioner note has been reviewed, I agree with the document and findings and plan of care. Patient has been seen and examined. Objective - Vital Signs Vital signs: Vital Signs Temp 97.5 F L 06/10/19 08:39 Pulse 88 06/10/19 08:39 Resp 16 06/10/19 08:39 BP 114/63 06/10/19 08:39 Pulse Ox 98 06/10/19 08:39 Intake & Output 06/09/19 06/10/19 06/10/19 18:59 06:59 18:59 Intake Total 480 100 Output Total 2450 Balance 480 -2350 Intake: Oral 480 100 Output: Urine 2450 Other: Voiding Method Indwelling Catheter Indwelling Catheter Indwelling Catheter # Voids 3 - Labs CBC & Chem 7: 06/10/19 05:48 06/07/19 04:34 Labs: Abnormal Lab Results - Last 24 Hours (Table) 06/09/19 06/10/19 06/10/19 Range/Units 14:57 05:48 08:41 RBC 2.25 L 2.02 L (3.80-5.40) m/uL Hgb 7.1 L D 6.8 L* (11.4-16.0) gm/dL Hct 22.3 L 19.5 L* (34.0-46.0) % Plt Count 123 L 142 L (150-450) k/uL Lymphocytes # 0.5 L (1.0-4.8) k/uL Crossmatch See Detail
[2019-06-10] MEDS: SENNOSIDES-DOCUSATE SODIUM 1 EACH TAB PO SCH (21:29)
[2019-06-10 23:12] LABS: Iron Saturation 0.98 (12.00-45.00)
[2019-06-10] MEDS: ZOLPIDEM 5 MG TAB PO SCH (23:34)
[2019-06-11] MEDS: LACTATED RINGERS 1,000 ML IV SCH ×3 (04:54→21:36)
[2019-06-11] MEDS: LEVOTHYROXINE 125 MCG TAB PO SCH (05:30)
[2019-06-11] MEDS: ACETAMINOPHEN TAB 325 MG TAB PO PRN ×2 (05:30→15:05)
[2019-06-11 07:58] LABS: Basophils % (A) 0 %; Eosinophils # (A) 0.3 k/uL (0-0.7); Eosinophils % (A) 4 %; HCT 22.8 % (34.0-46.0); HGB 7.5 gm/dL (11.4-16.0); Lymphocytes # (A) 0.5 k/uL (1.0-4.8); Lymphocytes % (A) 8 %; MCH 31.2 pg (25.0-35.0); MCHC 33.1 g/dL (31.0-37.0); MCV 94.4 fL (80.0-100.0); Mean Platelet Volume 7.3; Monocytes # (A) 0.3 k/uL (0-1.0); Monocytes % (A) 6 %; Neutrophils # (A) 4.8 k/uL (1.3-7.7); Neutrophils % (A) 81 %; Platelet Count 154 k/uL (150-450); RBC 2.42 m/uL (3.80-5.40); RDW 13.3 % (11.5-15.5); WBC 5.9 k/uL (3.8-10.6)
[2019-06-11] MEDS: LISINOPRIL 20 MG TAB PO SCH (08:35)
[2019-06-11] MEDS: CYANOCOBALAMIN 500 MCG TAB PO SCH (08:35)
[2019-06-11] MEDS: HYDROCHLOROTHIAZIDE 25 MG TAB PO SCH (08:35)
[2019-06-11] MEDS: ASPIRIN 325 MG TAB PO SCH ×2 (08:35→21:36)
[2019-06-11] MEDS: CHOLECALCIFEROL 1,000 UNIT TAB PO SCH (08:35)
[2019-06-11] MEDS: ATORVASTATIN 10 MG TAB PO SCH (08:35)
[2019-06-11] MEDS: FAMOTIDINE 20 MG TAB PO SCH ×2 (08:35→21:36)
[2019-06-11] MEDS: VIT A,C & E-LUTEIN-MINERALS 1 EACH TAB PO SCH (08:39)
--- NOTE | 2019-06-11 09:55 | P.PN ---
Subjective Progress Note Date: 06/11/19 Patient seen and examined at bedside up and ambulatory with walker with toe- touch to the restroom, we'll have her Cabrera catheter removed today. Patient complaining of left eye blurry vision in her inferior field, patient on his confused as yesterday. Objective - Vital Signs Vital signs: Vital Signs Temp 98.1 F 06/11/19 08:51 Pulse 84 06/11/19 08:51 Resp 12 06/11/19 08:51 BP 143/69 06/11/19 08:51 Pulse Ox 95 06/11/19 08:51 Intake & Output 06/10/19 06/11/19 06/11/19 18:59 06:59 18:59 Intake Total 0 310 Output Total 1000 400 Balance -1000 -90 Intake: Blood Product 0 310 Rc As-1 Unit 0 310 [id number] Output: Urine 1000 400 Other: Voiding Method Indwelling Catheter Indwelling Catheter Indwelling Catheter - Exam General: non toxic, no distress, appears at stated age, normal weight Derm: no unusual rashes/lesions no unusual ecchymoses, warm, dry Head: atraumatic, normocephalic, symmetric Eyes: EOMI, no lid lag, anicteric sclera, pupils equal round reactive to light ENT: Nose and ears atraumatic, no thrush, no pharyngeal erythema Neck: No thyromegaly, no cervical lymphadenopathy, trachea midline, supple Mouth: no lip lesion, mucus membranes moist Cardiovascular: S1S2 reg, 4/5 systolic ejection murmur, positive posterior tibial pulse bilateral, no edema, capillary refill less than 2 seconds Lungs: CTA bilateral, no rhonchi, no rales , no accessory muscle use Abdominal: soft, nontender to palpation, no guarding, no appreciable organomegaly, normal bowel sounds Ext: No active bleeding or drainage appears to be neurovascularly intact, does have surrounding left hip hematoma Neuro: CN II-XI grossly intact, light touch intact all 4 extremities, finger to nose within normal limits, Psych: Alert, oriented, appropriate affect - Labs CBC & Chem 7: 06/11/19 06:51 06/07/19 04:34 Labs: Abnormal Lab Results - Last 24 Hours (Table) 06/10/19 06/10/19 06/11/19 Range/Units 05:48 08:41 06:51 RBC 2.42 L (3.80-5.40) m/uL Hgb 7.5 L (11.4-16.0) gm/dL Hct 22.8 L (34.0-46.0) % Lymphocytes # 0.5 L (1.0-4.8) k/uL Iron 2 L (50-170) ug/dL TIBC 204 L (228-460) ug/dL Iron Saturation 0.98 L (12.00-45.00) Crossmatch See Detail Assessment and Plan Assessment: Patient is a 68 yo CF here after a fall with left IT hip fracture Severe aortic stenosis - careful fluid/ blood pressure management in the perioperative period. - cardio consult for assistance with fluid management, patient is medically optimized for surgery and can be seen by cardio post-operatively. POD #4 from left hip IM hip screw for IT fracture - pain mangement - ortho management Postoperative anemia -Secondary to blood loss anemia hemoglobin 7.5 from 6.8 status post 1 unit packed RBC transfusion Iron deficiency anemia superimposed on acute blood loss anemia after surgery Left eye blurry vision * Discussed with the patient that we would watch and if her symptoms persisted would consider ordering MRI of her head Metabolic encephalopathy * Attributed secondary to narcotic medications and Ambien * Has resolved since patient's narcotics have been discontinued Left knee effusion - likely traumatic secondary to fall -Continue ice packs prn HTN, controlled - follow BP - Continue Remipril HLD - statin Insomnia -We will decrease dose of Ambien from 10 to 5 mg PO qhs Disposition * Anticipated discharge on Wednesday to rehab Thank you for allowing us to participate in the care of this patient. Do not hesitate to contact us with questions. Someone can be reached from the [facility] hospitalist group at all hours of the day at [phone]
--- NOTE | 2019-06-11 10:08 | P.PN ---
Progress Note - Text Progress Note Date: 06/11/19 Patient is a very pleasant 68-year-old female who is seen and examined at the bedside for follow-up evaluation for her left hip. She is status post left hip intramedullary nail fixation for left intertrochanteric hip fracture. Postoperatively she feels her pain has been controlled at her left hip. This morning she states she feels significantly better as compared to yesterday. She is much more awake, alert, and oriented. She is no longer confused. She was able to receive 1 unit of packed red blood cells and her hemoglobin has improved to 7.5. She states she is ready for discharge to a rehabilitation facility tomorrow. We discussed she'll be cleared for discharge pending clearance by medicine. Physical Exam Intramedullary Nail Fixation for Intertrochanteric Fracture: Status post surgical day number 4 Patient is examined lying in bed Patient is awake, alert, and oriented 3 Vital signs stable Good chest excursion with deep inspiration and expiration Abdomen soft nontender No signs or symptoms of DVT; no calf pain Lower extremity cuffs in place bilaterally Dressing of the hip is clean, dry, and intact; no erythema, purulence, or signs of infection No pain with palpation over the surgical sites Full range of motion of ankles bilaterally Dorsiflexion, plantarflexion, and extensor hallucis longus positive sustained bilaterally Neurovascularly intact bilateral lower extremities Capillary refill less than 2 seconds bilateral lower extremities Assessment: Status post left intramedullary nail fixation for left intertrochanteric hip fracture Status post fall Anemia; hemoglobin improving up to 7.5 following unit of packed red blood cells History of severe aortic stenosis History of hypertension History of insomnia Plan: 1. Patient to remain toe-touch weightbearing on the left lower extremity; patient may work with physical therapy to increase mobility and ambulation 2. Keep dressing over the left hip clean, dry, and intact 3. Discontinue Cabrera catheter when patient is able to increase mobility and ambulation 4. Continue pain control with oral [place], OxyContin, and/or IV Dilaudid as needed for pain control 5. Continue with anticoagulation therapy with aspirin 325 mg twice a day 6. Medicine to continue following the patient for their other medical diagnosis including anemia and insomnia; Ambien dosage has been reduced 7. We'll continue to follow the patient closely; depending on the patient's progress, we may plan for discharge as early as 06/12/2019, to a rehabilitation facility 8. Patient can follow-up with Dr. Maykel Moy at [facility] in 10 days following discharge
[2019-06-11] MEDS: MULTIVITAMINS, THERA 1 EACH TAB PO SCH (15:05)
[2019-06-11] MEDS: SENNOSIDES-DOCUSATE SODIUM 1 EACH TAB PO SCH (21:33)
[2019-06-11] MEDS: oxyCODONE ER 10 MG TAB.ER.12H PO SCH (21:34)
[2019-06-11] MEDS: traMADol 50 MG TAB PO PRN (21:36)
[2019-06-11] MEDS: ZOLPIDEM 5 MG TAB PO SCH (23:03)
[2019-06-12] MEDS: traMADol 50 MG TAB PO PRN ×4 (03:53→21:55)
[2019-06-12] MEDS: LACTATED RINGERS 1,000 ML IV SCH ×3 (05:21→22:47)
[2019-06-12] MEDS: LEVOTHYROXINE 125 MCG TAB PO SCH (05:23)
[2019-06-12 07:38] LABS: Basophils % (A) 0 %; Eosinophils # (A) 0.3 k/uL (0-0.7); Eosinophils % (A) 5 %; HCT 22.9 % (34.0-46.0); HGB 7.7 gm/dL (11.4-16.0); Lymphocytes # (A) 0.8 k/uL (1.0-4.8); Lymphocytes % (A) 13 %; MCH 31.6 pg (25.0-35.0); MCHC 33.4 g/dL (31.0-37.0); MCV 94.6 fL (80.0-100.0); Mean Platelet Volume 7.3; Monocytes # (A) 0.4 k/uL (0-1.0); Monocytes % (A) 6 %; Neutrophils # (A) 4.4 k/uL (1.3-7.7); Neutrophils % (A) 74 %; Platelet Count 184 k/uL (150-450); RBC 2.42 m/uL (3.80-5.40); RDW 13.3 % (11.5-15.5)
[2019-06-12] MEDS: HYDROCHLOROTHIAZIDE 25 MG TAB PO SCH (08:24)
[2019-06-12] MEDS: LISINOPRIL 20 MG TAB PO SCH (08:24)
[2019-06-12] MEDS: CHOLECALCIFEROL 1,000 UNIT TAB PO SCH (08:24)
[2019-06-12] MEDS: ASPIRIN 325 MG TAB PO SCH ×2 (08:24→20:46)
[2019-06-12] MEDS: CYANOCOBALAMIN 500 MCG TAB PO SCH (08:24)
[2019-06-12] MEDS: oxyCODONE ER 10 MG TAB.ER.12H PO SCH ×2 (08:25→20:42)
[2019-06-12] MEDS: FAMOTIDINE 20 MG TAB PO SCH ×2 (08:25→20:46)
[2019-06-12] MEDS: VIT A,C & E-LUTEIN-MINERALS 1 EACH TAB PO SCH (08:25)
[2019-06-12] MEDS: ATORVASTATIN 10 MG TAB PO SCH (08:25)
--- NOTE | 2019-06-12 09:21 | P.DS ---
Providers Date of admission: 06/07/19 04:29 Expected date of discharge: 06/12/19 Attending physician: Maykel Moy Consults: 06/07/19 07:47 Consult Physician Routine Consulting Provider: Lupis Munguia Consult Reason/Comments: medical management Do you want consulting provider notified?: Already Contacted 06/07/19 10:09 Consult Physician Routine Consulting Provider: Dawson Chirinos Consult Reason/Comments: aortic stenosis, severe Do you want consulting provider notified?: Yes 06/07/19 10:26 Consult Physician Routine Consulting Provider: Dawson Chirinos Consult Reason/Comments: aortic stenosis, severe Do you want consulting provider notified?: Already Contacted Primary care physician: Physician Nonstaff - Discharge Diagnosis(es) (1) Hip fracture, left Patient was admitted to the OR on 06/07/2019 to undergo a left IM hip screw/IT nail for hip fracture. She desired to proceed with elective surgery after given informed consent. She underwent the above procedure which she tolerated well without complication. Postoperative hospital course has remained without complication. On day of discharge she is afebrile, vital signs stable, labs wit hin acceptable ranges, tolerating by mouth meds and diet, voiding without difficulty, positive flatus, denies abdominal pain or calf pain, pain is controlled on oral pain medication and has no new complaints. Wound is benign, neurovascular status is intact, calf is soft and nontender, abdomen soft and nontender. Review of systems is negative for numbness, tingling, fever, chills, chest pain, shortness breath, nausea, vomiting, dizziness, headaches, slurred speech or other. Current Visit: Yes Status: Acute Priority: Medium Patient Condition at Discharge: Good Plan - Discharge Summary Discharge Rx Participant: No New Discharge Prescriptions: New Aspirin 325 mg PO BID #60 tab Docusate [Colace] 100 mg PO BID #60 capsule HYDROcodone/APAP 10-325MG [[place] 10-325] 1 tab PO Q4HR PRN #42 tab PRN Reason: Pain oxyCODONE ER [OxyCONTIN] 10 mg PO Q12HR 3 Days #14 tab No Action Vit C/E/Zn/Coppr/Lutein/Zeaxan [Preservision Areds 2 Softgel] 1 cap PO DAILY Armour-3 Fatty Acids/Fish Oil [Fish Oil 1,000 mg Softgel] 1 cap PO DAILY Citracal/Vit D 1 tab PO DAILY Cholecalciferol (Vitamin D3) [Vitamin D3] 2,000 unit PO DAILY Zolpidem [Ambien] 10 mg PO HS Ramipril 10 mg PO DAILY Levothyroxine Sodium [Synthroid] 125 mcg PO DAILY Hydrochlorothiazide [Hydrodiuril] 25 mg PO DAILY Cyanocobalamin (Vitamin B-12) [Vitamin B-12] 1,000 mcg PO DAILY Atorvastatin [Lipitor] 10 mg PO DAILY Ubidecarenone [Co Q-10] 100 mg PO DAILY Discharge Medication List Atorvastatin [Lipitor] 10 mg PO DAILY 06/07/19 [History] Cholecalciferol (Vitamin D3) [Vitamin D3] 2,000 unit PO DAILY 06/07/19 [History] Citracal/Vit D 1 tab PO DAILY 06/07/19 [History] Cyanocobalamin (Vitamin B-12) [Vitamin B-12] 1,000 mcg PO DAILY 06/07/19 [History] Hydrochlorothiazide [Hydrodiuril] 25 mg PO DAILY 06/07/19 [History] Levothyroxine Sodium [Synthroid] 125 mcg PO DAILY 06/07/19 [History] Armour-3 Fatty Acids/Fish Oil [Fish Oil 1,000 mg Softgel] 1 cap PO DAILY 06/07/19 [History] Ramipril 10 mg PO DAILY 06/07/19 [History] Ubidecarenone [Co Q-10] 100 mg PO DAILY 06/07/19 [History] Vit C/E/Zn/Coppr/Lutein/Zeaxan [Preservision Areds 2 Softgel] 1 cap PO DAILY 06/07/19 [History] Zolpidem [Ambien] 10 mg PO HS 06/07/19 [History] Aspirin 325 mg PO BID #60 tab 06/09/19 [Rx] Docusate [Colace] 100 mg PO BID #60 capsule 06/09/19 [Rx] HYDROcodone/APAP 10-325MG [[place] 10-325] 1 tab PO Q4HR PRN #42 tab 06/09/19 [Rx] oxyCODONE ER [OxyCONTIN] 10 mg PO Q12HR 3 Days #14 tab 06/09/19 [Rx] Follow up Appointment(s)/Referral(s): [facility] [NON-STAFF] - Nonstaff,Physician [Primary Care Provider] - 1-2 days Maykel Moy MD [STAFF PHYSICIAN] - 10 Days [facility] Visiting Nurse, [NON-STAFF] - Activity/Diet/Wound Care/Special Instructions: Keep wound clean and dry Take meds as directed Follow-up with Dr. Moy in office Touch down weight bearing May shower in 3 days if no bleeding Syd out at PO day 12 Discharge Disposition: TRANSFER TO SNF/ECF
--- NOTE | 2019-06-12 12:19 | P.PN ---
Subjective Progress Note Date: 06/12/19 Principal diagnosis: Left blurry vision Patient was seen and examined. No acute events overnight. Patient reports blurriness in her left eye. States that this is been present since surgery. She thought that it would go away but it has become persistent. She denies any eye pain or photophobia. No eye discharge. She denies any headache, dizziness, numbness/weakness/tingling of the extremities. No slurred speech or difficulty swallowing. She denies any chest pain, shortness of breath or palpitations. Objective - Vital Signs Vital signs: Vital Signs Temp 97.8 F 06/12/19 08:00 Pulse 81 06/12/19 08:00 Resp 16 06/12/19 08:00 BP 137/70 06/12/19 08:00 Pulse Ox 96 06/12/19 08:00 Intake & Output 06/11/19 06/12/19 06/12/19 18:59 06:59 18:59 Output Total 700 Balance -700 Output: Urine 700 Uretheral (Cabrera) 300 Other: Voiding Method Indwelling Catheter Toilet Toilet # Voids 1 2 - Exam General: [non toxic], [no distress], [appears at stated age] Derm: [warm], [dry] Head: [atraumatic], [normocephalic], [symmetric] Eyes: [EOMI], [no lid lag], [anicteric sclera] Mouth: [no lip lesion], [mucus membranes moist] Cardiovascular: [S1S2 reg], [systolic murmur], [positive DP pulse bilateral], Lungs: [CTA bilateral], [no rhonchi, no rales] , [no accessory muscle use] Abdominal: [soft], [ nontender to palpation], [no guarding], [no appreciable organomegaly] Ext: [no gross muscle atrophy], [no edema], [left knee swollen] Neuro: [ Decreased vision in the inferior nasal and temporal quadrant left eye], [no focal neuro deficits] Psych: [Alert], [oriented], [appropriate affect] - Labs CBC & Chem 7: 06/12/19 06:23 06/07/19 04:34 Labs: Abnormal Lab Results - Last 24 Hours (Table) 06/12/19 Range/Units 06:23 RBC 2.42 L (3.80-5.40) m/uL Hgb 7.7 L (11.4-16.0) gm/dL Hct 22.9 L (34.0-46.0) % Lymphocytes # 0.8 L (1.0-4.8) k/uL Assessment and Plan Assessment: Left eye blurry vision Severe aortic stenosis POD 5 from left hip IM for intertrochanteric fracture Anemia from acute blood loss from surgery Left knee effusion Hypertension Hyperlipidemia Insomnia Resolved: Metabolic encephalopathy Decreased vision in the inferior nasal and temporal quadrants. Plans: Plans for evaluation by anesthesia prior to discharge. Consider CT brain if symptoms persistent. Cleared by cardiology for surgery. Stable. Plans: Follow cardiology recommendations. Plans: Management as per orthopedic surgery. Hemoglobin 7.7. Iron studies showing iron deficiency. Status post 1 unit PRBC. Plans: Hemoglobin maintaining. Repeat CBC in 3 days. Post fall. X-ray shows small to moderate joint effusion. Plans: Ice pack. BP 137/70. Plans: Continue hydrochlorothiazide, lisinopril. Monitor vitals, adjust medications as necessary. Plans: Continue Lipitor. Plans: Continue zolpidem. Thank you for this consult. Please call if any additional questions or concerns.
[2019-06-12] MEDS: MULTIVITAMINS, THERA 1 EACH TAB PO SCH (12:29)
[2019-06-12] MEDS: ARTIFICIAL TEARS-HYPROMELLOSE DROPS 15 ML BTL LEFT EYE PRN ×2 (14:10→20:46)
--- NOTE | 2019-06-12 15:42 | CDI ---
Documentation Clarification Form Date: 06/12/2019 2:59:43 PM From: Yamilet Nguyen RN, CCDS Admit Date: 06/07/2019 4:29:00 AM Patient Name: Jill Krause Visit Number: [id number] Discharge Date: ATTENTION: The Clinical Documentation Specialists (CDI) and [facility] Coding Staff appreciate your assistance in clarifying documentation. Please respond to the clarification below the line at the bottom and electronically sign. The CDI & [facility] Coding staff will review the response and follow-up if needed. Please note: Queries are made part of the Legal Health Record. If you have any questions, please contact the author of this message via ITS. Dr. Maykel Moy Anemia, acute blood loss after surgery is documented in the progress notes on 06/09/19 and further clarification is needed. Patients Admitting Diagnosis: Left displaced 4-part intertrochanteric hip fracture Post-Operative Diagnosis: Left displaced 4-part intertrochanteric hip fracture Procedure performed: Left intramedullary hip screw fixation History/Risk Factors: Severe aortic stenosis, Hypertension, Thyroid Disorder Clinical Indicators: 68-year-old female who fell onto her left hip. Her x-rays revealed comminuted displaced 4 part intertrochanteric hip fracture. She is post left intramedullary hip screw fixation on 06/07/2019 and per operative report estimated blood loss was 50 mls. Her admit hemoglobin on 06/07/19 was 10.9 06/09/19 HGB 7.1, HCT 22.3 06/11/19 HGB 6.8, HCT 19.5 06/12/19 HGB 7.5, HCT 22.8 Post 1 unit PRBC 06/09/19 IM Consult (Dr. Fournier) Hemoglobin gradually dropping 10.2 to 6.8 postop. Patient increasingly fatigued and tired. Has a lot of brusing around the left hip area. Vital signs are 114/63 87 16 98 % RA Iron deficiency anemia superimposed on acute blood loss anemia after surgery. Treatment: Monitor CBC, Iron Studies Transfuse 1 unit PRBC IV Fluids Theragram PO Daily multivitamin Preparations 1 PO DAILY In order to accurately reflect this patients severity of illness, please clarify if the post-operative acute blood loss anemia diagnosis is: An expected post-procedural or post-surgical condition (further specify if known) An unexpected post-procedural or post-surgical condition, related to the patients underlying medical comorbidities Other, please specify Unable to determine (Last Revision: February 2019) MTDD
--- NOTE | 2019-06-12 16:36 | CDI ---
Documentation Clarification Form Date: 06/12/2019 3:46:49 PM From: Yamilet Nguyen RN, CCDS Admit Date: 06/07/2019 4:29:00 AM Patient Name: Jill Krause Visit Number: [id number] Discharge Date: ATTENTION: The Clinical Documentation Specialists (CDI) and [facility] Coding Staff appreciate your assistance in clarifying documentation. Please respond to the clarification below the line at the bottom and electronically sign. The CDI & [facility] Coding staff will review the response and follow-up if needed. Please note: Queries are made part of the Legal Health Record. If you have any questions, please contact the author of this message via ITS. Dr. Maykel Moy 06/10/19 and subsequent progress notes by Dr. Fournier a left hip hematoma is documented and further clarification is needed. Patients Admitting Diagnosis: Fall with left displaced 4-part intertrochanteric hip fracture Post-Operative Diagnosis: Same Procedure performed: Left intramedullary hip screw fixation History/Risk Factors: Severe aortic stenosis, hypertension, Thyroid Disorder. Clinical Indicators: 68-year-old female who was a fall onto her left hip. Her x-rays revealed comminuted displaced 4 part intertrochanteric hip fracture. 06/09/19 POD #2: Inspection reveals a benign surgical wound. There is no active bleeding or drainage. Labs review reveal HGB 7.1, HCT 22.3 06/10/19 POD # 3 (Dr. Fournier) progress notes has a lot of brusing around the left hip area. No active bleeding or drainage appears to be neurovascularly intact, does have surrounding left hip hematoma. Labs review: HGB 6.8, HCT 19.5 Treatment: Monitor CBC Transfuse 1 unit PRBC IV Fluids Theragram Po Daily Muiltivitamin PO daily In order to accurately reflect this patients severity of illness, please clarify if the post-operative hematoma diagnosis is: An expected post-procedural or post-surgical condition, related to the fall (specify if Present on admission or Not Present on admission) An unexpected post-procedural or post-surgical condition, related to the patients underlying medical comorbidities, post fall with left hip fracture Left Hip hematoma ruled out ( Further specify) Other, please specify Unable to determine (Last Revision: February 2019) MTDD
--- NOTE | 2019-06-12 18:58 | CT ---
EXAMINATION TYPE: CT angio head neck DATE OF EXAM: 06/12/2019 HISTORY: Vision changes. COMPARISON: None CT DLP: mGycm. Automated Exposure Control for Dose Reduction was Utilized. TECHNIQUE: CTA scan of the neck is performed , patient injected with mL of , axial images are obtain ed, coronal and sagittal reformatted images are reviewed. Three-D reconstructed images are created on an independent workstation and reviewed. The contrast was Isovue 50 mL. FINDINGS: There is normal branching pattern of the great vessels on the aortic arch. There is some atherosclero tic plaque formation at the aortic arch. There is arterial flow in both subclavian arteries. There is arterial flow in both vertebral arteries. There is arterial flow in the vertebrobasilar artery syste m. There is some fusiform narrowing of the proximal right internal carotid artery with 30% narrowing. Th ere is arterial flow in the common internal and external carotid arteries bilaterally. There is fairl y wide patency of the carotid artery bifurcations. There is arterial flow in the anterior middle and posterior cerebral arteries. There is arterial flow in the intracranial internal carotid arteries bilaterally. There is normal contrast opacification of the venous sinuses. I see no evidence of intracranial arterial stenosis. There is bilateral patency of the posterior communicating arteries. There is no sign of intracranial aneurysm or neovascularity. There is no mass effect. IMPRESSION: Mild fusiform narrowing of the proximal right internal carotid artery without evidence of hemodynamic stenosis. Otherwise negative exam.
[2019-06-12] MEDS: ACETAMINOPHEN TAB 325 MG TAB PO PRN (19:48)
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
[2019-06-12] MEDS: SENNOSIDES-DOCUSATE SODIUM 1 EACH TAB PO SCH (20:49)
[2019-06-12] MEDS: ZOLPIDEM 5 MG TAB PO SCH (22:46)
[2019-06-13] MEDS: traMADol 50 MG TAB PO PRN ×2 (04:20→09:25)
[2019-06-13] MEDS: LEVOTHYROXINE 125 MCG TAB PO SCH (05:35)
[2019-06-13 08:28] VITALS: BP 132/66; PULSE 68; RESP 16; TEMP 98.5
[2019-06-13] MEDS: oxyCODONE ER 10 MG TAB.ER.12H PO SCH (08:33)
[2019-06-13] MEDS: CYANOCOBALAMIN 500 MCG TAB PO SCH (08:35)
[2019-06-13] MEDS: MULTIVITAMINS, THERA 1 EACH TAB PO SCH (08:35)
[2019-06-13] MEDS: VIT A,C & E-LUTEIN-MINERALS 1 EACH TAB PO SCH (08:35)
[2019-06-13] MEDS: HYDROCHLOROTHIAZIDE 25 MG TAB PO SCH (08:36)
[2019-06-13] MEDS: FAMOTIDINE 20 MG TAB PO SCH (08:36)
[2019-06-13] MEDS: CHOLECALCIFEROL 1,000 UNIT TAB PO SCH (08:36)
[2019-06-13] MEDS: ASPIRIN 325 MG TAB PO SCH (08:36)
[2019-06-13] MEDS: ATORVASTATIN 10 MG TAB PO SCH (08:36)
[2019-06-13] MEDS: ARTIFICIAL TEARS-HYPROMELLOSE DROPS 15 ML BTL LEFT EYE PRN (08:36)
[2019-06-13] MEDS: LISINOPRIL 20 MG TAB PO SCH (08:36)
--- NOTE | 2019-06-13 09:46 | P.PN ---
Subjective Progress Note Date: 06/13/19 Principal diagnosis: Left hip fracture Patient is seen at bedside this morning. She is postop day #6 from left hip IM hip screw for IT fracture. She had complaints of left eye field of vision changes since surgery and thus I requested anesthesia see her. They requested neurology consult for CVA work up. She has no new complaints today and appears to be doing well. She has pain at the surgical site as expected. She denies numbness, tingling or calf pain. Review of systems is negative for fever, chills, chest pain, shortness of breath, slurred speech, dizziness, headaches, nausea, vomitting, facial droop or other Objective - Vital Signs Vital signs: Vital Signs Temp 98.5 F 06/13/19 08:00 Pulse 68 06/13/19 08:00 Resp 16 06/13/19 08:00 BP 132/66 06/13/19 08:00 Pulse Ox 97 06/13/19 08:00 Intake & Output 06/12/19 06/13/19 06/13/19 18:59 06:59 18:59 Other: Voiding Method Toilet Toilet # Voids 5 2 # Bowel Movements 1 - Exam Inspection reveals a benign surgical wound. There is no active bleeding or drainage. Neurovascular status is intact throughout the lower extremity with motor and sensation fully intact. Calf is soft and nontender. 2+ dorsalis pedis pulse and less than 2 second cap refill is present. - Constitutional General appearance: Present: no acute distress - Labs CBC & Chem 7: 06/12/19 06:23 06/07/19 04:34 Assessment and Plan (1) Hip fracture, left Narrative/Plan: She will continue with routine postop orthopedic protocol including pain management, wound care, PT, DVT prophylaxis and medical management. She may transfer to Rehab when ok with IM and neurology. Current Visit: Yes Status: Acute Priority: Medium Code(s): S72.002A - FRACTURE OF UNSP PART OF NECK OF LEFT FEMUR, INIT SNOMED Code(s): 685946348 Time with Patient: Less than 30
--- NOTE | 2019-06-13 11:10 | ECHOF ---
Referral Reason:blurred vision MEASUREMENTS -------- HEIGHT: 165.1 cm WEIGHT: 71.7 kg BP: RVIDd: 2.9 cm (< 3.3) IVSd: 1.5 cm (0.6 - 1.1) LVIDd: 4.3 cm (3.9 - 5.3) LVPWd: 1.4 cm (0.6 - 1.1) IVSs: 1.8 cm LVIDs: 1.9 cm LVPWs: 1.8 cm Ao Diam: 3.0 cm (2.0 - 3.7) AV Cusp: 1.1 cm (1.5 - 2.6) LA Diam: 2.6 cm (2.7 - 3.8) MV EXCURSION: 16.659 mm (> 18.000) MV EF SLOPE: 119 mm/s (70 - 150) EPSS: 0.5 cm MV E Ignacio: 0.94 m/s MV DecT: 224 ms MV A Ignacio: 0.90 m/s MV E/A Ratio: 1.04 AV maxP.82 mmHg AV meanP.31 mmHg RAP: 5.00 mmHg RVSP: 19.78 mmHg FINDINGS -------- Sinus rhythm. This was a technically adequate study. Pt unable to turn due to hip fx. The left ventricular size is normal. There is moderate concentric left ventricular hypertrophy. O verall left ventricular systolic function is normal with, an EF between 55 - 60 %. The right ventricle is normal in size. The left atrial size is normal. The right atrial size is normal. Interatrial and interventricular septum intact. Aortic valve is trileaflet and is severely thickened. There is severe aortic stenosis present. Pe ak/mean gradient across the Aortic Valve is 83.82mmHg / 62.31mmHg. The mitral valve is normal. There is trace mitral regurgitation. Mild tricuspid regurgitation present. Right ventricular systolic pressure is normal at < 35 mmHg. There is no pulmonic regurgitation present. The aortic root size is normal. Normal inferior vena cava with normal inspiratory collapse consistent with estimated right atrial pre ssure of 5 mmHg. There is no pericardial effusion. CONCLUSIONS -------- 1. Sinus rhythm. 2. This was a technically adequate study. 3. Pt unable to turn due to hip fx. 4. The left ventricular size is normal. 5. There is moderate concentric left ventricular hypertrophy. 6. Overall left ventricular systolic function is normal with, an EF between 55 - 60 %. 7. The right ventricle is normal in size. 8. The left atrial size is normal. 9. The right atrial size is normal. 10. Interatrial and interventricular septum intact. 11. Aortic valve is trileaflet and is severely thickened. 12. There is severe aortic stenosis present. 13. Peak/mean gradient across the Aortic Valve is 83.82mmHg / 62.31mmHg. 14. The mitral valve is normal. 15. There is trace mitral regurgitation. 16. Mild tricuspid regurgitation present. 17. Right ventricular systolic pressure is normal at < 35 mmHg. 18. There is no pulmonic regurgitation present. 19. The aortic root size is normal. 20. Normal inferior vena cava with normal inspiratory collapse consistent with estimated right atrial pressure of 5 mmHg. 21. There is no pericardial effusion. FRONT DESK RECEPTIONIST: Erma Kebede RDCS
--- NOTE | 2019-06-13 12:29 | P.PN ---
Subjective Progress Note Date: 06/13/19 Principal diagnosis: Left hip pain Patient was seen and examined. No acute events overnight. Patient denies any chest pain, shortness of breath or palpitations. Still complaining of left eye blurriness in the inferior segments. She denies any nausea or vomiting. No fever or chills. Looking forward to going to rehab Objective - Vital Signs Vital signs: Vital Signs Temp 98.5 F 06/13/19 08:00 Pulse 68 06/13/19 08:00 Resp 16 06/13/19 08:00 BP 132/66 06/13/19 08:00 Pulse Ox 97 06/13/19 08:00 Intake & Output 06/12/19 06/13/19 06/13/19 18:59 06:59 18:59 Other: Voiding Method Toilet Toilet # Voids 5 2 # Bowel Movements 1 - Exam General: [non toxic], [no distress], [appears at stated age] Derm: [warm], [dry] Head: [atraumatic], [normocephalic], [symmetric] Eyes: [EOMI], [no lid lag], [anicteric sclera] Mouth: [no lip lesion], [mucus membranes moist] Cardiovascular: [S1S2 reg], [systolic murmur], [positive DP pulse bilateral], Lungs: [CTA bilateral], [no rhonchi, no rales] , [no accessory muscle use] Abdominal: [soft], [ nontender to palpation], [no guarding], [no appreciable organomegaly] Ext: [no gross muscle atrophy], [no edema], [left knee swollen] Neuro: [ Decreased vision in the inferior nasal and temporal quadrant left eye], [no focal neuro deficits] Psych: [Alert], [oriented], [appropriate affect] - Labs CBC & Chem 7: 06/12/19 06:23 06/07/19 04:34 Assessment and Plan Assessment: Left eye blurry vision Severe aortic stenosis POD 6 from left hip IM for intertrochanteric fracture Anemia from acute blood loss from surgery Left knee effusion Hypertension Hyperlipidemia Insomnia Resolved: Metabolic encephalopathy Decreased vision in the inferior nasal and temporal quadrants. CTA head and neck unremarkable. Echocardiogram shows EF 55-60% with moderate LVH and severe aortic stenosis. Telemetry unremarkable as per RN as she discussed with cardiology. Plans: Neurology consulted, cleared for discharge with current workup, MRI brain when patient is back in [place] along with loop recorder. Cleared by cardiology for surgery. Stable. Plans: Follow cardiology recommendations. Plans: Management as per orthopedic surgery. Hemoglobin 7.7. Iron studies showing iron deficiency. Status post 1 unit PRBC. Plans: Hemoglobin maintaining. Repeat CBC in 3 days. Post fall. X-ray shows small to moderate joint effusion. Plans: Ice pack. BP 132/66. Plans: Continue hydrochlorothiazide, lisinopril. Monitor vitals, adjust medications as necessary. Plans: Continue Lipitor. Plans: Continue zolpidem. Thank you for this consult. Please call if any additional questions or concerns.
--- NOTE | 2019-06-13 14:08 | P.PN ---
Progress Note - Text Progress Note Date: 06/13/19 Subjective: No overnight events. Patient continues to endorse a visual field cut and her left lower medial corner. Denies any headache, nausea, dizziness, blurry vision, worsening visual field cut, weakness, numbness, or tingling sensation. Patient had her CTA of head and neck showed mild fusiform narrowing of the proximal right ICA without evidence of hemodynamic stenosis. Otherwise negative. Transthoracic echocardiogram showed ejection fraction between 55-60%. Normal left ventricular/right ventricular/left and right atrial size. The aortic valve is severely thickened. On review of telemetry overnight, there was an event of some arrhythmia. P waves are present for all QRS complexes. PHYSICAL EXAMINATION: VITAL SIGNS: Temperature 97.7. Pulse rate 69. Respiratory rate 14. Blood pressure 125/61. O2 sat 96% on room air. GEN.: NAD, pleasant and cooperative SKIN AND EXTREMITIES: Warm to touch, no edema Neuro: MENTAL STATUS: Patient alert and oriented to self, place, time. CRANIAL NERVES II THROUGH XII: II: Pupils are equal and reactive to light symmetrically. No afferent pupillary defect. Left inferior nasal quadrant with decreased vision. Reexamined right inferior quadrants, which appear normal.. III, IV, : No ptosis. Extraocular movements full. No nystagmus. V: Facial sensation intact from V1-3. VII. No clear facial asymmetry. VIII: Hearing intact to finger rub bilaterally. IX, X: Symmetric palate elevation. XII: Shoulder shrug intact. XII: Tongue midline without fasciculation or atrophy. MOTOR: Normal bulk/tone. No pronator drift or tremor. Strength is 5/5 throughout all 4 extremities. SENSORY: Intact to light touch, temperature, pinprick in all 4 extremities. Romberg is negative. REFLEXES: 2+ throughout. Toes are downgoing. No clonus. Alfonzo's is absent COORDINATION: Finger to nose and heel to tan intact. No dysmetria. DIAGNOSTIC TESTING: CTA of head and neck showed mild fusiform narrowing of the proximal right ICA without evidence of hemodynamic stenosis. Otherwise negative. Transthoracic echocardiogram showed ejection fraction between 55-60%. Normal left ventricular/right ventricular/left and right atrial size. The aortic valve is severely thickened. ASSESSMENT and PLAN: Ms. Krause is a 68-year-old woman with past medical history is significant for hypertension, hyperlipidemia, hypothyroidism, aortic stenosis, insomnia, breast cancer status post lumpectomy and radiation in 2014 transferred from [facility] after falling dancing, found with a left hip fracture status post hip fixation on 06/07/2019, consulting neurology for left eye visual field cut. CTA of head and neck unremarkable. Transthoracic echocardiogram compared to previous report in 2018 stable (will like to comment that the echo in 2018 showed left atrial enlargement). Patient continues to refuse MRI at this time, patient will like to go back to [place] to get her imaging done. Recommendations: 1. Recommending telemetry to be reviewed by a energy engineer to comment on the arrhythmia noted. 2. Continue aspirin 81 mg daily and atorvastatin. Patient at this time on aspirin 325 mg daily. Unclear if that is the standard dosing after hip fixation surgeries. Aspirin 325 mg is not necessary for stroke prevention. 3. The patient back in [place], patient should obtain MRI brain. Also consider discussing with her energy engineer about consideration of placing a loop recorder or using a Xiopatch for long-term cardiac monitoring for possible arrhythmia. 4. After review of telemetry by the energy engineer, if no significant arrhythmia noted, patient can be discharged to rehab.
== END 2019-06-13 12:59 | DRG 480 ==
LOC: EC 03:08 → 4SSUR 04:29
PROVIDERS: ADMIT Orthopaedic Surgery Sports Medicine; ATTEND Orthopaedic Surgery Sports Medicine
PROC: 0QS734Z Reposition Left Upper Femur with Internal Fixation Device, Percutaneous Approach (ICD-10-PCS; principal; 2019-06-07 09:50)
PROC: 30233N1 Transfusion of Nonautologous Red Blood Cells into Peripheral Vein, Percutaneous Approach (ICD-10-PCS; 2019-06-09)
DX: S72.142A Displaced intertrochanteric fracture of left femur, initial encounter for closed fracture (principal); G92 Toxic encephalopathy; D62 Acute posthemorrhagic anemia; I35.0 Nonrheumatic aortic (valve) stenosis; I10 Essential (primary) hypertension; W01.0XXA Fall on same level from slipping, tripping and stumbling without subsequent striking against object, initial encounter; Y93.41 Activity, dancing; T42.6X5A Adverse effect of other antiepileptic and sedative-hypnotic drugs, initial encounter; Y92.239 Unspecified place in hospital as the place of occurrence of the external cause; H53.40 Unspecified visual field defects; D50.0 Iron deficiency anemia secondary to blood loss (chronic); E03.9 Hypothyroidism, unspecified; E78.00 Pure hypercholesterolemia, unspecified; E78.5 Hyperlipidemia, unspecified; E87.70 Fluid overload, unspecified; M25.462 Effusion, left knee; G47.00 Insomnia, unspecified; H54.7 Unspecified visual loss; Z79.82 Long term (current) use of aspirin; Z79.890 Hormone replacement therapy; Z79.899 Other long term (current) drug therapy; Z82.49 Family history of ischemic heart disease and other diseases of the circulatory system; Z82.5 Family history of asthma and other chronic lower respiratory diseases; Z83.3 Family history of diabetes mellitus; Z85.3 Personal history of malignant neoplasm of breast; Z86.73 Personal history of transient ischemic attack (TIA), and cerebral infarction without residual deficits; Z87.891 Personal history of nicotine dependence; Z92.3 Personal history of irradiation; Y92.89 Other specified places as the place of occurrence of the external cause; Z88.6 Allergy status to analgesic agent; Z88.5 Allergy status to narcotic agent; Z88.8 Allergy status to other drugs, medicaments and biological substances
CPT/HCPCS: 36415; 70496; 70498; 71045; 73501; 73502; 80053; 81003; 82728; 83540; 83550; 85025; 85027; 85610; 85730; 86850; 86900; 86901; 86920; 93005; 93306; 96374; 99285

== ENCOUNTER → 2019-07-04 | Outpatient (CLI) | payer MEDICARE, OTHER ==
[2019-07-04 17:34] LABS: Basophils % (A) 0 %; Eosinophils # (A) 0.3 k/uL (0-0.7); Eosinophils % (A) 4 %; HGB 10.7 gm/dL (11.4-16.0); Hypochromasia Moderate; Lymphocytes # (A) 1.3 k/uL (1.0-4.8); Lymphocytes % (A) 21 %; MCH 30.9 pg (25.0-35.0); MCHC 31.6 g/dL (31.0-37.0); MCV 97.9 fL (80.0-100.0); Mean Platelet Volume 6.4; Monocytes # (A) 0.5 k/uL (0-1.0); Monocytes % (A) 7 %; Neutrophils # (A) 4.3 k/uL (1.3-7.7); Neutrophils % (A) 66 %; Platelet Count 270 k/uL (150-450); RBC 3.47 m/uL (3.80-5.40); RDW 14.3 % (11.5-15.5); WBC 6.5 k/uL (3.8-10.6)
== END | disposition home or self-care (01) ==
LOC: LABWHC1 16:57
PROVIDERS: ATTEND Ophthalmology
DX: H47.019 Ischemic optic neuropathy, unspecified eye (principal)
CPT/HCPCS: 36415; 85025; 86038; 86140

== ENCOUNTER → 2019-07-06 | Outpatient (CLI) | payer MEDICARE, OTHER | END | disposition home or self-care (01) | LOC: LABWHC1 10:07 | PROVIDERS: ATTEND Ophthalmology | DX: M31.6 Other giant cell arteritis (principal) | CPT/HCPCS: 36415; 85652 ==

== ENCOUNTER → 2022-06-02 | Outpatient (CLI) | payer MEDICARE, OTHER ==
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
--- NOTE | 2022-06-02 12:35 | XR ---
EXAMINATION TYPE: XR Hip Complete LT DATE OF EXAM: 06/02/2022 COMPARISON: NONE HISTORY: 71-year-old female joint pain, osteoarthritis TECHNIQUE: 2 views FINDINGS: Images show antegrade intramedullary nail with screw fixation. Partially united chronic fracture frag ment of the lesser trochanter. No acute fracture, subluxation, or dislocation is seen. There may be m ild superolateral joint space narrowing of the left hip. Pelvic phleboliths. IMPRESSION: Antegrade intramedullary nail with screw fixation across a healed IT fracture. Underlying mild left h ip OA. No acute osseous abnormality seen.
[2022-06-02 13:45] VITALS: BP 172/74; PULSE 120; RESP 20; TEMP 98.1
== END ==
LOC: PNWHC3 12:26
PROVIDERS: ATTEND Anesthesiology
DX: M54.32 Sciatica, left side (principal); M48.061 Spinal stenosis, lumbar region without neurogenic claudication; M16.12 Unilateral primary osteoarthritis, left hip; Z88.6 Allergy status to analgesic agent; Z88.5 Allergy status to narcotic agent; Z87.891 Personal history of nicotine dependence; E78.5 Hyperlipidemia, unspecified; I10 Essential (primary) hypertension
CPT/HCPCS: 73502; G0463; 99211

== ENCOUNTER → 2022-06-02 | Outpatient (CLI) | payer MEDICARE, OTHER ==
--- NOTE | 2022-06-02 19:25 | MR ---
EXAMINATION TYPE: MR lumbar spine wo con DATE OF EXAM: 06/02/2022 COMPARISON: None HISTORY: Low back pain that radiates down left leg. TECHNIQUE: Multiplanar, multisequence images of the lumbar spine were acquired without IV contrast. L1-L2: Posterior broad-based disc bulge causes mild anterior mass effect on the thecal sac. No signif icant foraminal encroachment. L2-L3: Posterior disc bulge causes mild anterior mass effect on the thecal sac. Circumferential exten brittaney endplate disc complex encroaches somewhat on the left neural foramen greater than right L3-L4: Posterior disc bulge causes mild anterior mass effect on the thecal sac. Circumferential disc bulge encroaches on the inferior aspect of the foramina. L4-L5: Minimal posterior disc bulge causes slight anterior mass effect on the thecal sac, there is la teral disc herniation causing marked left-sided foraminal encroachment. Facet arthropathy with hypert rophy ligamentum flavum is present L5-S1: There is facet arthropathy change, hypertrophic changes causes posterior lateral mass effect o n the thecal sac, trefoil appearance of the thecal sac noted. Anterior to the S1 vertebral body just inferior to the disc space there are probable synovial cysts present extending into the spinal canal on the right, possibly on the left. There is posterior broad-based disc bulge, somewhat eccentric tow ards the left, circumferential extension of endplate disc complex causes foraminal encroachment left greater than right Lumbar segments are intact. No paraspinal masses are identified. Conus medullaris has a normal appe arance. No significant spinal stenosis. Anterolisthesis grade 1 L5-S1. Loss of disc height signal at intervertebral levels is consistent with disc desiccation and degenerative disc disease. There is mul tilevel spondylosis with endplate discogenic marrow signal change. Lumbar vertebral bodies show prese rved height. Parapelvic cysts are suspected within the kidneys IMPRESSION: Degenerative disc disease and facet arthropathy changes described. Post contrast images may be of yulisa efit for evaluation at L5-S1.
== END | disposition home or self-care (01) ==
LOC: RADMRIMAIN 16:42
PROVIDERS: ATTEND Anesthesiology
DX: M48.061 Spinal stenosis, lumbar region without neurogenic claudication (principal); M51.26 Other intervertebral disc displacement, lumbar region; M47.816 Spondylosis without myelopathy or radiculopathy, lumbar region
CPT/HCPCS: 72148

== ENCOUNTER 2022-06-09 11:02 | Day surgery (SDC) | payer MEDICARE, OTHER ==
[~2022-06-09 11:02] MED LIST: LACTATED RINGERS 1,000 ML IV SCH
[2022-06-09 11:13] VITALS: RESP 18; TEMP 97
[2022-06-09] MEDS ORDERED: ROPIVACAINE 5MG/ML 20ML VIAL ONE (11:52)
[2022-06-09] MEDS ORDERED: TRIAMCINOLONE ACETONIDE 40 MG/ML 1 ML VIAL ONE (11:52)
[2022-06-09] MEDS ORDERED: fentaNYL (PF) 50 MCG/ML 2 ML AMP ONE (11:52)
[2022-06-09] MEDS ORDERED: MIDAZOLAM 2 MG/2 ML VIAL ONE (11:52)
--- NOTE | 2022-06-09 12:04 | P.PCN ---
Date of Procedure: 06/09/22 Surgeon: Jean Obrien Pathology: none sent Condition: stable Disposition: PACU Description of Procedure: Pre OP diagnoses= Left greater trochanteric bursitis . Postoperative diagnosis= Left greater trochanteric bursitis. Operation= trochanteric bursa steroid injection under fluoroscopy guidance. Anesthesia= IV sedation with Versed , fentanyl and local infiltration with lidocaine 1% 2 mL . Complications= none . Risks and benefits of the procedure including but not limited to risk of infection and bleeding and not complete pain relief and ALLERGIC reaction to medication discussed with the patient and the alternative also discussed with the patient and she agreed with proceding .Patient was taken to the operating room placed in supine position , standard monitors applied , the hip area was prepped with chlorhexidine , and under sterile technique using 25-gauge needle for skin and subcutaneous tissue infiltration and 22-gauge Quincke-type spinal needle advanced slowly under fluoroscopy to contact bone of the greater trochanter. Needle placement was confirmed with AP and lateral view . 4 ML of ropivacaine 0.5% mixed with 40 mg of Kenalog injected after negative aspiration . there was no paresthesia during the injection ,needle removed and a dressing applied.Patient tolerated the procedure well without any complication and she will follow up with the pain clinic in a few weeks P Patient discharged home in stable condition
[2022-06-09] MEDS ORDERED: IV FLUID CONTINUATION 1,000 ML IV ONE (12:08)
--- NOTE | 2022-06-09 12:14 | FL ---
Fluoroscopy History: BURSA JOINT INJ Left bursa inj 10sec fluoro time, 2 images to PACS
[2022-06-09 12:26] VITALS: BP 145/65; PULSE 61
== END 2022-06-09 12:41 | disposition home or self-care (01) ==
LOC: ORPAIN 11:02
PROVIDERS: ATTEND Anesthesiology
DX: M70.62 Trochanteric bursitis, left hip (principal)
CPT/HCPCS: 20610; J2250; J3301; J3010; J2795

== ENCOUNTER 2022-07-09 11:11 | Day surgery (SDC) | payer MEDICARE, OTHER ==
[2022-07-07 11:23] VITALS: BMI 26.6
[~2022-07-09 11:11] MED LIST changes: +LIDOCAINE 1% (10MG/ML) FOR IV START INTRADERMA PRN
[2022-07-09 11:22] VITALS: TEMP 96.9
[2022-07-09] MEDS ORDERED: LACTATED RINGERS 1,000 ML IV ONE (11:24)
[2022-07-09] MEDS ORDERED: methylPREDNISolone ACETATE 40 MG/ML 1 ML VIAL ONE (11:53)
[2022-07-09] MEDS ORDERED: MIDAZOLAM 2 MG/2 ML VIAL ONE (11:53)
[2022-07-09] MEDS ORDERED: ROPIVACAINE 5MG/ML 20ML VIAL ONE (11:53)
[2022-07-09] MEDS ORDERED: fentaNYL (PF) 50 MCG/ML 2 ML AMP ONE (11:53)
--- NOTE | 2022-07-09 12:07 | P.PCN ---
Date of Procedure: 07/09/22 Procedure(s) Performed: Pre OP diagnoses=1- Left trochanteric bursitis . 2-lumbar degenerative disc disease. 3-lumbar spondylosis with lumbar facet arthropathy Postoperative diagnosis= same as preop diagnosis Operation= left trochanteric bursa steroid injection under fluoroscopy guidance.(The fluoroscopy images on file in Radiology department ) Anesthesia= moderate sedation with IV , Versed 2 mg and fentanyl 100 micrograms and local infiltration with Ropivacaine 1% 2 mL . Sedation start time: 1155 . Sedation is stopped time : 1159 Complications= none . Description of the procedure= patient had history of severe low back pain and hip pain secondary to trochanteric bursitis for this reason patient was a good candidate to have left trochanteric bursa steroid injection which hopefully it will help his pain, risks and benefits of the procedure including but not limited to risk of infection and bleeding and not complete pain relief and ALLERGIC reaction to medication discussed with the patient and the alternative also discussed with the patient and he agreed with the preceding patient taken to the operating room placed in prone position or standard monitors applied patient and after induction of anesthesia the back and the hip area prepped with chlorhexidine 3 times, and under sterile technique using 25-gauge needle for skin and subcutaneous tissue infiltration was first admitted the right trochanteric bursa injection at 22-gauge Quincke-type spinal needle advanced slowly under fluoroscopy and placed in the Left trochanteric bursa needle placement confirmed with AP and lateral view and after appropriate needle placement confirmed under fluoroscopy 5 ML of Ropivacaine 0.5% mixed with 40 mg of Depo-medrol injected after negative aspiration for heme and there was no CSF and there was no paresthesia during the injection and needle removed and a dressing applied , patient tolerated the procedure well without any complication and she will follow up with the pain clinic in a few weeks and patient discharged home in stable condition
[2022-07-09] MEDS ORDERED: IV FLUID CONTINUATION 1,000 ML IV ONE (12:10)
[2022-07-09 12:43] VITALS: BP 138/63; PULSE 69; RESP 16
--- NOTE | 2022-07-10 07:11 | FL ---
Fluoroscopy History: LARGE BURSA JT INJ 1 sec fluoro
== END 2022-07-09 12:44 | disposition home or self-care (01) ==
LOC: ORPAIN 11:11
PROVIDERS: ATTEND Specialist
DX: M70.62 Trochanteric bursitis, left hip (principal); M51.36 Other intervertebral disc degeneration, lumbar region; M47.816 Spondylosis without myelopathy or radiculopathy, lumbar region
CPT/HCPCS: 20610; J2250; J1030; J3010; J2795

== ENCOUNTER → 2022-07-30 | Outpatient (CLI) | payer MEDICARE, OTHER ==
[2022-07-30 11:25] VITALS: BP 133/71; PULSE 80; RESP 18
--- NOTE | 2022-07-30 14:19 | P.PAINPG ---
PQRS Measure Charge Sheet Comment: A 72 yr old female with a history of severe and chronic low back pain secondary to lumbar degenerative disc diseases and lumbar spondylosis with facet arthropathy without myelopathy presents today for evaluation s/p L Trochanteric Bursa injection. Pt states she experienced 90% pain relief x 3 wks s/p proc edure. Pain level is currently at 4/10 in intensity, constant, localized in anterior L hip , dull/ achy in character w radiation of pain to the L lateral thigh. Pain is provoked by weight bearing activity. Pain is alleviated with medications, injections, repositioning and rest. MRI of the lumbar spine reviewed w pt. Interventional pain procedures completed include L Trochanteric Bursa injection Patient is currently on Motrin 800mg, Voltaren gel prn Patient denies any side effects of the medication(s), denies excessive drowsiness or sleepiness, denies suicidal ideation and reports that the current pain medication is helping to control the pain and improve activities of daily living. Patient denies any motor or sensory deficits. Patient denies any fever or night sweats, denies any change in the bowel movements or urination. Physical Examination: -Constitutional: Cooperative. Not in acute distress . - Neurologic: Cranial nerve II to XII intact. No focal neurological deficits. - Psychatric: Alert & oriented x 3. Matching mood & appropriate affect. Judgment and insight intact. - Musculoskeletal: Cervical spine: Muscle bulk/ tone/ strength in the bilateral upper extremities normal Vertebral body tenderness to palpation over Spurling test positive Distraction test positive Facet loading test positive Thoracic spine Muscle bulk / tone/ strength in the bilateral paraspinal muscles normal Vertebral body tender to palpation over Facet loading test positive Lumbar spine: Motor bulk/ tone/ strength lower extremities , thigh and legs : 5/5 Deep tendon reflexes : Normal Knee Jerk. Normal Ankle Jerk . Vertebral body tenderness to palpation over L2, L3 Lumbar Facet Loading Test positive Straight Leg Raise: positive at 30 degrees right side/ left side Gaenslen's Test positive Sacral spine : Severe tenderness over the Sacroiliac joint: right side / left side Range of motion: Flexion of the lumbar spine <60 degrees Range of motion: Extension of the lumbar spine <20 degrees Gaenslen's Test positive Francisco J's Test positive Darryl test: positive right side / left side Thigh Thrust Test Sacral Thrust Test Assessment and plan: Chronic low back pain secondary to lumbar degenerative disc disease , lumbar spondylosis with facet arthropathy without myelopathy Recommendation of L paramedial L2-L3. May need a series of injections, up to 2 additional within a 12 mo period, for optimal pain relief. Risks, benefits of procedure discussed and pt verbalized understanding. Denies anticoagulant use or medical history of diabetes. All patient questions answered MAPS reviewed and it was appropriate. I have spent less than 30 minutes on patient care today. Dr Queen was available by phone for the evaluation of this patient. The time was used to review the medical records including relevant urine studies and Prescription history (MAPs), review of the available imaging, evaluation and examination of the patient, coordination of care with the medical staff and if applicable referring physicians, as well as creation of the medical record - Pain Location Left Hip Non-Pharmacological Interventions: Home Exercise, Relaxation Technique Pharmacological Interventions: PRN Medication PQRS Narrative: Smoking Status Former smoker Home Medications: Ambulatory Orders Atorvastatin [Lipitor] 10 mg PO DAILY 06/07/19 Cholecalciferol (Vitamin D3) [Vitamin D3] 5,000 unit PO DAILY 06/07/19 Citracal/Vit D 1 tab PO DAILY 06/07/19 Cyanocobalamin (Vitamin B-12) [Vitamin B-12] 1,000 mcg PO DAILY 06/07/19 Levothyroxine Sodium [Synthroid] 125 mcg PO DAILY 06/07/19 Vit C/E/Zn/Coppr/Lutein/Zeaxan [Preservision Areds 2 Softgel] 1 cap PO BID 06/07/19 hydroCHLOROthiazide [Hydrodiuril] 25 mg PO Q2D 06/07/19 ramipriL [Ramipril] 10 mg PO DAILY 06/07/19 Aspirin 81 mg PO QAM 06/02/22 Bifidobacterium Infantis [Align] 4 mg PO DAILY 06/02/22 DULoxetine HCL [Cymbalta] 30 mg PO DAILY 06/02/22 Ibuprofen 800 mg PO Q8H PRN 06/02/22 Zolpidem [Ambien] 10 mg PO HS PRN 06/02/22 Controlled Substance Measures - Controlled Substance Measures Is patient prescribed a controlled substance at discharge?: No
== END ==
LOC: PNWHC3 10:57
PROVIDERS: ATTEND Specialist
DX: M51.36 Other intervertebral disc degeneration, lumbar region (principal); M47.816 Spondylosis without myelopathy or radiculopathy, lumbar region; G89.29 Other chronic pain; Z87.891 Personal history of nicotine dependence; Z88.6 Allergy status to analgesic agent; Z88.5 Allergy status to narcotic agent
CPT/HCPCS: 99211

== ENCOUNTER → 2022-08-13 | Outpatient (CLI) | payer MEDICARE, OTHER ==
--- NOTE | 2022-08-13 10:00 | US ---
EXAMINATION TYPE: US carotid duplex BILAT DATE OF EXAM: 08/13/2022 COMPARISON: Prior CTA neck June 12, 2019 CLINICAL HISTORY: I65.23OCCLUSION AND STENOSIS. TECHNIQUE: Carotid duplex ultrasound examination. Indirect Doppler criteria was utilized. FINDINGS: EXAM MEASUREMENTS: RIGHT: Peak Systolic Velocity (PSV) cm/sec ----- Right CCA: 73.8 ----- Right ICA: 69.9 ----- Right ECA: 81.4 ICA/CCA ratio: 0.9 RIGHT: End Diastole cm/sec ----- Right CCA: 13.6 ----- Right ICA: 24.8 ----- Right ECA: 8.4 LEFT: Peak Systolic Velocity (PSV) cm/sec ----- Left CCA: 59.5 ----- Left ICA: 76.8 ----- Left ECA: 74.9 ICA/CCA ratio: 1.3 LEFT: End Diastole cm/sec ----- Left CCA: 11.1 ----- Left ICA: 16.9 ----- Left ECA: 7.5 VERTEBRALS (direction of flow): Right Vertebral: Antegrade Left Vertebral: Antegrade Rhythm: Normal DIESEL FLEET MECHANIC NOTES: Minimal plaque visualized in bilateral carotid bulbs. No significant stenosis seen . No elevated velocities. IMPRESSION: No hemodynamically significant stenosis in either internal carotid artery. Findings rob elate with 2019 CTA neck exam. Criteria for Assigning % of Stenosis / Diameter reduction (Estimation based on the indirect measurements of the internal carotid artery velocities (ICA PSV). 1. Normal (no stenosis)=ICA PSV < 125 cm/s: ratio < 2.0: ICA EDV<40 cm/s. 2. Less than 50% stenosis=ICA PSV < 125 cm/s: ratio < 2.0: ICA EDV<40 cm/s. 3. 50 to 69% stenosis=ICA PSV of 125 to 230 cm/s: ration 2.0 ? 4.0: ICA EDV 40-100 cm/s. 4. Greater than 70% stenosis to near occlusion= ICA PSV > 230 cm/s: ratio > 4.0: ICA EDV > 100 cm/s. 5. Near occlusion= ICA PSV velocities may be low or undetectable: variable ratio and ICA EDV. 6. Total occlusion=unable to detect flow.
--- NOTE | 2022-08-13 10:37 | CT ---
EXAMINATION TYPE: CT heart w calcium score DATE OF EXAM: 08/13/2022 COMPARISON: None HISTORY: Screening for cardiovascular disorder. 213.9 CT DLP: 44.80 mGycm Automated exposure control for dose reduction was used. CT CALCIUM SCORING Coronary calcium is a marker for plaque (fatty deposits) in a blood vessel or atherosclerosis (harden ing of the arteries). The presence and amount of calcium detected in a coronary artery by the CT sca n, indicates the presence and amount of atherosclerotic plaque. These calcium deposits appear years before the development of heart disease symptoms such as chest pain and shortness of breath. A calcium score is computed for each of the coronary arteries based upon the volume and density of th e calcium deposits. This can be referred to as your calcified plaque burden. It does not correspond directly to the percentage of narrowing in the artery but does correlate with the severity of the un derlying coronary atherosclerosis. PROCEDURE TECHNIQUE - Prospective Gating was used. Slice thickness: 3mm. Density threshold (HU): 130, Pixel threshold: 3, Algorithm: discrete. RESULTS Region: LM Calcium Score (Agatston): 0 Volume (mm3): 0 Mass (g): 0 Region: RCA Calcium Score (Agatston): 0 Volume (mm3): 0 Mass (g): 0 Region: LAD Calcium Score (Agatston): 0 Volume (mm3): 0 Mass (g): 0 Region: CX Calcium Score (Agatston): 0 Volume (mm3): 0 Mass (g): 0 Region: PDA Calcium Score (Agatston): 0 Volume (mm3): 0 Mass (g): 0 Total: Calcium Score (Agatston): 0 Volume (mm3): 0 Mass (g): 0 TOTAL CALCIUM SCORE: 0 Small hiatal hernia. Heart mildly prominent with postsurgical change of the aortic root and valve IMPRESSION: 1. Findings suggest postsurgical change of the aortic valve with no significant coronary artery calci fication.. Calcium Score: 0 Implication: No identifiable plaque. Risk of Coronary Artery Disease: Very low, generally less than 5%. CALCIUM SCORE IMPLICATION RISK OF C ORONARY ARTERY DISEASE 0 No identifiable plaque Very low, generally less than 5% 1-10 Minimal identifiable plaque Very unlikely, less than 10% 11-100 Definite, at least mild atherosclerotic plaque Mild or m inimal coronary narrowings likely 101-400 Definite, at least moderate atherosclerotic plaque Mild coronary ar otilio disease highly likely, significant narrowing possible 401 or Higher Extensive atherosclerotic plaque High lik elihood of at least one significant coronary narrowing
== END | disposition home or self-care (01) ==
LOC: RADUSWWP 08:53
PROVIDERS: ATTEND Internal Medicine
DX: Z13.6 Encounter for screening for cardiovascular disorders (principal); I65.23 Occlusion and stenosis of bilateral carotid arteries
CPT/HCPCS: 75571; 93880

== ENCOUNTER 2022-08-27 10:11 | Day surgery (SDC) | payer MEDICARE, OTHER ==
[2022-08-27 10:50] VITALS: RESP 16; TEMP 97.5
[2022-08-27] MEDS ORDERED: MIDAZOLAM 2 MG/2 ML VIAL ONE (11:07)
[2022-08-27] MEDS ORDERED: fentaNYL (PF) 50 MCG/ML 2 ML AMP ONE (11:07)
[2022-08-27] MEDS ORDERED: methylPREDNISolone ACETATE 40 MG/ML 1 ML VIAL ONE (11:07)
[2022-08-27] MEDS ORDERED: IOPAMIDOL M200 10 ML VIAL ONE (11:07)
--- NOTE | 2022-08-27 11:22 | P.PCN ---
Date of Procedure: 08/27/22 Procedure(s) Performed: PREOPERATIVE DIAGNOSIS: 1- Lumbar Degenerative Disc Diseases 2-Lumbar spondylosis with Facet arthropathy without myelopathy. 3-lumbar radiculopathy POSTOPERATIVE DIAGNOSIS: Same as preop diagnosis. PROCEDURE 1. Lumbar epidural steroid injection under fluoroscopic guidance at the L2-3 level.(Left paramedian approach) (Fluoroscopy imaging was available in radiology department) 2. Lumbar epidurogram. ANESTHESIA: moderate sedation with intravenous Versed 2 mg ,and fentanyle 100 Mcg Sedation start time : 1109 Sedation end time : 1118 EBL: Minimal PROCEDURE INDICATION: The patient with low back pain and radiculitis symptoms unresponsive to conservative treatment. Fluoroscopy was used to optimize visualization of the needle placement and to maximize safety. PROCEDURE DESCRIPTION / TECHNIQUE: The patient was seen and identified in the preoperative area. Risks, benefits, complications including but not limited to infections ,bleeding ,allergic reaction to the medications ,nerve damage and not complete pain releife , and alternatives were discussed with the patient. The patient agreed to proceed with the procedure and signed the consent. IV was started, and vital signs were stable. Patient was taken to the OR and time out was completed. The patient was placed in the prone position on procedure table and a pillow was placed under the abdomen to reduce lumbar lordosis. The lumbosacral area was prepped and draped in the usual sterile fashion.ere closely monitored during the procedure. Conscious sedation was used during the procedure to decrease patients anxiety. Vital signs was monitered during the entire procedure. Using anterior-posterior fluoroscopy, the L2-3 interlaminar space was identified and the skin over this site was marked and then infiltrated with 1% lidocaine subcutaneously. Subsequently, a 20-gauge Tuohy epidural needle was inserted left paramedian and advanced toward the epidural space using the ``Loss of resistance technique and guided by AP and lateral fluoroscopy. The correct needle position in the epidural space was verified with the injection of 2 mL of the water soluble contrast dye Isovue 200 contrast and observing an excellent epidurogram with the epidural spread of the dye, after negative aspiration for blood and CSF and in the absence of paresthesias. Again after negative aspiration, a 6 ml mixture containing 40 mg of Depo-medrol ( Preservetive Free ), and 2 ml of preservative free Normal Saline, and 2 ml of preservative free lidocaine 1% solution was injected and a washout of epidurogram was seen. Needle was withdrawn intact, skin was cleansed, and bandages were applied. COMPLICATIONS: None DISPOSITION / PLANS: The patient was placed in a supine position and transferred to the recovery area in a stable condition for observation. There was no evidence of lower extremity motor or sensory deficit after the procedure. Patient was discharged from the recovery room after meeting discharge criteria. Home discharge instructions were given to the patient by the staff. The patient was reexamined prior to discharge. The patient will schedule a follow up in the clinic in 2-4 weeks.
[2022-08-27] MEDS ORDERED: IV FLUID CONTINUATION 1,000 ML IV ONE (11:25)
[2022-08-27 11:48] VITALS: BP 113/66; PULSE 66
--- NOTE | 2022-08-27 12:15 | FL ---
Fluoroscopy INDICATION: Pain FINDINGS: Fluoroscopy time: 5 seconds. Images obtained: One. IMPRESSIONS: 1. Documentation of fluoroscopy.
== END 2022-08-27 11:56 | disposition home or self-care (01) ==
LOC: ORPAIN 10:11
PROVIDERS: ATTEND Specialist
DX: M47.26 Other spondylosis with radiculopathy, lumbar region (principal); M51.16 Intervertebral disc disorders with radiculopathy, lumbar region; Z88.8 Allergy status to other drugs, medicaments and biological substances; Z88.5 Allergy status to narcotic agent; Z88.6 Allergy status to analgesic agent
CPT/HCPCS: 99152; 62323; J2250; J1030; J3010; Q9966

== ENCOUNTER → 2023-03-16 | Outpatient (CLI) | payer MEDICARE, OTHER ==
--- NOTE | 2023-03-16 23:12 | CT ---
EXAMINATION TYPE: CT iac wo con DATE OF EXAM: 03/16/2023 COMPARISON: None HISTORY: hearing loss to right ear CT DLP: 150 mGycm Automated exposure control for dose reduction was used. Contrast: None Technique: Axial images 1 mm thick sections. Reconstructed images in the coronal plane. FINDINGS: There is mucosal thickening within the left maxillary sinus. There may be some debris within the righ t maxillary sinus. Debris is within the bilateral sphenoid sinuses. Bilateral silvia bullosa are pres ent. There is right septal deviation. Ostiomeatal units appear obstructed within the hiatus semilunar is. Right mastoid air cells are fluid-filled within their inferior portions. No septal wall destruction i s evident. Incus and malleus have normal orientation bilaterally. The scutum are normal. Cochlea are normal. Semicircular canals are normal Middle ears appear clear. External auditory canals are clear. Some minimal soft tissue may be above t he malleolus on the right. Tiny amount of fluid could be considered a cholesteatoma is not excluded. Follow-up is recommended. IMPRESSION: 1. FLUID-FILLED MASTOID AIR CELLS COMPATIBLE WITH MASTOIDITIS. 2. SMALL AMOUNT OF FLUID OR SOFT TISSUE MAY BE ABOVE THE MALLEOLUS ON THE RIGHT. CONSIDER CHOLESTEATO MA AND FOLLOW-UP IS RECOMMENDED. 3. DEBRIS FILLED SPHENOID SINUSES AND RIGHT MAXILLARY SINUS.
== END | disposition home or self-care (01) ==
LOC: RADCTMAIN 12:58
PROVIDERS: ATTEND Internal Medicine
DX: H90.41 Sensorineural hearing loss, unilateral, right ear, with unrestricted hearing on the contralateral side (principal); J34.89 Other specified disorders of nose and nasal sinuses
CPT/HCPCS: 70480